=== PATIENT | male | born 1990 | race Caucasian/White ===

== ENCOUNTER 2019-12-09 23:51 | Inpatient (IN) ==
[2019-12-10 01:03] LABS: Appearance Urine Clear (Clear); Blood Urine Negative (Negative); Color Urine Dark Yellow; Glucose Urine UA Negative (Negative); Ketones Urine 2+ (Negative); Leukocyte Esterase Urine Negative (Negative); Nitrite Urine Negative (Negative); Protein Urine Negative (Negative); Specific Gravity Urine 1.037 (1.000-1.030); Urobilinogen Urine Negative (Negative)
[2019-12-10 01:12] LABS: Bilirubin Urine Negative (Negative); Ictotest Urine Negative (Negative)
[2019-12-10 01:28] LABS: Amphetamines+Metham, Urine Neg (Neg); Barbiturates, Urine Neg (Neg); Benzodiazepine, Urine Neg (Neg); Cocaine, Urine Neg (Neg); MDMA (Ecstacy), Urine Neg (Neg); Methadone, Urine Neg (Neg); Opiate, Urine Neg (Neg); Phencyclidine, Urine Neg (Neg)
[2019-12-10 01:29] LABS: Basophils # (auto) 0.01 K/uL (0-0.2); Basophils % (auto) 0.1 %; Eosinophils # (auto) 0.03 K/uL (0-0.5); Eosinophils % (auto) 0.3 %; Hemoglobin 15.4 g/dL (14.0-18.0); Immature Granulocytes # (auto) 0.01 K/uL (0.00-0.02); Immature Granulocytes % (auto) 0.1 %; Lymphocytes # (auto) 2.94 K/uL (1.2-3.4); Lymphocytes % (auto) 30.8 %; Mean Corpuscular Hgb Conc 35.8 g/dL (32-36); Mean Corpuscular Volume 89.4 fL (80-100); Mean Platelet Volume 10.5 fL (7.4-10.4); Monocytes # (auto) 0.77 K/uL (0.11-0.59); Monocytes % (auto) 8.1 %; Neutrophils # (auto) 5.77 K/uL (1.4-6.5); Neutrophils % (auto) 60.6 %; Platelet Count 186 K/uL (130-400); RDW Coefficient of Variation 12.3 % (11.5-14.5); RDW Standard Deviation 39.4 fL (36.4-46.3); Red Blood Count 4.81 M/uL (4.7-6.1); White Blood Count 9.53 K/uL (4.8-10.8)
[2019-12-10 01:50] LABS: Acetaminophen < 2 ug/ml (10-30); Salicylate < 1.7 mg/dl (2.8-20)
[2019-12-10 01:53] LABS: Albumin Level 4.2 gm/dl (3.4-5.0); BUN Creatinine Ratio 16.5 (10-20); Calcium 8.8 mg/dl (8.5-10.1); Creatinine Clr Calc Pharmacy 98.4 ml/min; Est GFR (African American) 96.1; Est GFR (Non-African American) 82.9; Potassium 3.6 mmol/L (3.5-5.1)
[2019-12-10 02:04] LABS: Albumin Globulin Ratio 1.3 (0.9-2); Bilirubin,Total 0.8 mg/dl (0.2-1); Globulin 3.3 gm/dl (2.5-4.0); Thyroid Stimulating Hormone 1.4 uIu/ml (0.300-4.500); Total Protein 7.5 gm/dl (6.4-8.2)
[2019-12-10] MEDS ORDERED: risperiDONE 1 MG TABLET PO PRN (06:34)
[2019-12-10] MEDS ORDERED: BISMUTH SUBSALICYLATE PER ML OMNICELL CHARGE PO PRN (06:36)
[2019-12-10] MEDS ORDERED: ACETAMINOPHEN 325 MG TAB PO PRN (06:36)
[2019-12-10] MEDS ORDERED: MAGNESIUM HYDROXIDE SUSP 30 ML UDC PO PRN (06:36)
[2019-12-10] MEDS ORDERED: ALUMINUM/MAGNESIUM SUSP 30 ML UDC PO PRN (06:36)
[2019-12-10] MEDS ORDERED: SODIUM CHLORIDE 0.65% NA SOLN 45 ML (OCEAN) PRN (06:36)
[2019-12-10] MEDS ORDERED: PATIENT'S ALLERGY INFO NEEDS ENTERED SCH (06:45)
--- NOTE | 2019-12-10 06:47 | Emergency Department Note ---
Entered by Junaid Saunders acting as a scribe for History of Present Illness General Chief complaint: Mental Health Evaluation Stated complaint: MENTAL BREAK DOWN Source: patient and friends History of Present Illness Onset (ago): day(s) (today) Location: head Pain Consistency: + constant Quality: + other (erratic behavior) Associated symptoms: + other (Negative for SI and HI.) The patient is a 29 year old male who presents to the emergency department with constant erratic behavior beginning today. The patient states that he has a history of depression. He notes that he has not been taking his antidepressants recently. He reports that he was on meth for his depression but is not anymore because it makes him depressed. The patient states that he has had some increased stress recently. Per friend, the patient has been erratic today. He notes that the patient was at a crisis center for a possible drug/alcohol related incident or for a possible mental breakdown. He reports that the patient has not acted like this in the past. The patient denies any SI and HI. He states that he had previously had suicidal ideations a year and a half ago, but he does not remember if he tried killing himself. He denies any recent illness, and he notes that he does not drink alcohol. He reports that he has a family history of depression. Home Medications Home Medications Medication Instructions Recorded Confirmed Type Unobtainable 12/10/19 12/10/19 History Allergies Allergy/AdvReac Type Severity Reaction Status Date / Time No Known Allergies Allergy Unverified 12/10/19 06:50 Past Med/Surg History Medical History (Updated 12/10/19 @ 06:37 by Junaid Saunders) Depression Family History (Updated 12/10/19 @ 01:05 by Junaid Saunders) Other Depression Social History (Updated 12/10/19 @ 01:26 by Junaid Saunders) Preferred Language: Latvian Feels Safe at Home: Yes Smoking Status: Never smoker Hx Alcohol Use: No Hx Substance Use: Yes substance use type: methamphetamine Review of Systems See HPI for pertinent positives & negatives. and A total of 10 systems reviewed and were otherwise negative Physical Exam Vital Signs Vital Signs - 24 hr 12/09/19 23:53 12/10/19 01:48 Temperature 36.4 C L Temperature Source Oral Pulse Rate 80 Pulse Rate [Apical] 80 Respiratory Rate 18 18 Respiratory Effort / Characteristics Non-Labored Respiratory Depth Normal Respiratory Pattern Regular Blood Pressure 144/73 H Blood Pressure [Left Arm] 135/77 Blood Pressure Mean 96 Blood Pressure Mean [Left Arm] 96 Pulse Oximetry 100 98 Oxygen Delivery Method Room Air Room Air Sepsis Recent Fever Within 48 Hours No Sepsis Action Taken by Nursing No Action Required GENERAL: alert, well appearing, well nourished, no distress, non-toxic EYE EXAM: normal conjunctiva, PERRL and EOM's grossly intact OROPHARYNX: no exudate, no erythema, lips, buccal mucosa, and tongue normal and mucous membranes are moist NECK: supple, no nuchal rigidity, no adenopathy, non-tender LUNGS: Clear to auscultation. Normal chest wall mechanics, no w/r/r. HEART: no murmurs, S1 normal and S2 normal ABDOMEN: abdomen soft, non-tender, normo-active bowel sounds, no masses, no rebound or guarding. BACK: Back is symmetrical on inspection and there is no deformity, no midline tenderness, no CVA tenderness. SKIN: no rashes and no bruising UPPER EXTREMITIES: upper extremities are grossly normal. FROM, nml pulses b/l. LOWER EXTREMITIES: No pitting edema. FROM, nml pulses b/l. NEURO EXAM: Normal sensorium, cranial nerves II-XII grossly intact, normal speech, no gross weakness of arms, no gross weakness of legs. Psych: Poor eye contact, inappropriate laughing, pressured speech, flight of ideas. Course Course 0009: The patient was evaluated in room A8. A complete history and physical exam was performed. 0340: The patient was seen by the psych case sealer Maricarmen. 0525: I signed the 302. 0600: The patient was accepted to [address] [place] [address]. He will be moved upstairs for further treatment. Medical Decision Making Differential Diagnosis Differential diagnoses considered include mood disorder, infection, hypoglycemia, electrolyte abnormalities, cardiac sources, intracerebral event, toxicologic, neurologic, as well as others. Medical Records Attestation: I reviewed the patient's medical records. Home Medications Current Medication List: was personally reviewed by me Laboratory Data Attestation: I reviewed the patient's lab results. Result diagrams: 12/10/19 01:18 12/10/19 01:18 Lab Results 12/10/19 12/10/19 12/10/19 Range/Units 00:08 00:08 01:18 WBC 9.53 (4.8-10.8) K/uL RBC 4.81 (4.7-6.1) M/uL Hgb 15.4 (14.0-18.0) g/dL Hct 43.0 (42-52) % MCV 89.4 (80-100) fL MCH 32.0 (25-34) pg MCHC 35.8 (32-36) g/dL RDW Std Deviation 39.4 (36.4-46.3) fL RDW Coeff of Magaly 12.3 (11.5-14.5) % Plt Count 186 (130-400) K/uL MPV 10.5 H (7.4-10.4) fL Immature Gran % (Auto) 0.1 % Neut % (Auto) 60.6 % Lymph % (Auto) 30.8 % [place] % (Auto) 8.1 % Eos % (Auto) 0.3 % Baso % (Auto) 0.1 % Immature Gran # (Auto) 0.01 (0.00-0.02) K/uL Neut # (Auto) 5.77 (1.4-6.5) K/uL Lymph # (Auto) 2.94 (1.2-3.4) K/uL [place] # (Auto) 0.77 H (0.11-0.59) K/uL Eos # (Auto) 0.03 (0-0.5) K/uL Baso # (Auto) 0.01 (0-0.2) K/uL Sodium (136-145) mmol/L Potassium (3.5-5.1) mmol/L Chloride (98-107) mmol/L Carbon Dioxide (21-32) mmol/L Anion Gap (3-11) BUN (7-18) mg/dl Creatinine (0.6-1.4) mg/dl Est Cr Clr Drug Dosing ml/min Est GFR ( Amer) Est GFR (Non-Af Amer) BUN/Creatinine Ratio (10-20) Glucose (70-99) mg/dl Calcium (8.5-10.1) mg/dl Total Bilirubin (0.2-1) mg/dl AST (15-37) U/L ALT (12-78) U/L Alkaline Phosphatase (45-117) U/L Total Protein (6.4-8.2) gm/dl Albumin (3.4-5.0) gm/dl Globulin (2.5-4.0) gm/dl Albumin/Globulin Ratio (0.9-2) TSH (0.300-4.500) uIu/ml Urine Color Dark Yellow Urine Appearance Clear (Clear) Urine pH 5.0 (4.5-7.5) Ur Specific [place] 1.037 H (1.000-1.030) Urine Protein Negative (Negative) Urine Glucose (UA) Negative (Negative) Urine Ketones 2+ H (Negative) Urine Blood Negative (Negative) Urine Nitrite Negative (Negative) Urine Bilirubin Negative (Negative) Urine Urobilinogen Negative (Negative) Ur Leukocyte Esterase Negative (Negative) Salicylates (2.8-20) mg/dl Urine Opiates Screen Neg (Neg) Ur Methadone, Qual Neg (Neg) Acetaminophen (10-30) ug/ml Urine Barbiturates Neg (Neg) Ur Phencyclidine (PCP) Neg (Neg) U Amphetamin/Meth Scrn Neg (Neg) MDMA (Ecstasy) Screen Neg (Neg) U Benzodiazepines Scrn Neg (Neg) Ur Cocaine Metabolite Neg (Neg) U Marijuana (THC) Screen Neg (Neg) Ethyl Alcohol mg/dL (0-3) mg/dl 12/10/19 12/10/19 12/10/19 Range/Units 01:18 01:18 01:18 WBC (4.8-10.8) K/uL RBC (4.7-6.1) M/uL Hgb (14.0-18.0) g/dL Hct (42-52) % MCV (80-100) fL MCH (25-34) pg MCHC (32-36) g/dL RDW Std Deviation (36.4-46.3) fL RDW Coeff of Magaly (11.5-14.5) % Plt Count (130-400) K/uL MPV (7.4-10.4) fL Immature Gran % (Auto) % Neut % (Auto) % Lymph % (Auto) % [place] % (Auto) % Eos % (Auto) % Baso % (Auto) % Immature Gran # (Auto) (0.00-0.02) K/uL Neut # (Auto) (1.4-6.5) K/uL Lymph # (Auto) (1.2-3.4) K/uL [place] # (Auto) (0.11-0.59) K/uL Eos # (Auto) (0-0.5) K/uL Baso # (Auto) (0-0.2) K/uL Sodium 138 (136-145) mmol/L Potassium 3.6 (3.5-5.1) mmol/L Chloride 107 (98-107) mmol/L Carbon Dioxide 29 (21-32) mmol/L Anion Gap 2.0 L (3-11) BUN 19 H (7-18) mg/dl Creatinine 1.18 (0.6-1.4) mg/dl Est Cr Clr Drug Dosing 98.4 ml/min Est GFR ( Amer) 96.1 Est GFR (Non-Af Amer) 82.9 BUN/Creatinine Ratio 16.5 (10-20) Glucose 95 (70-99) mg/dl Calcium 8.8 (8.5-10.1) mg/dl Total Bilirubin 0.8 (0.2-1) mg/dl AST 33 (15-37) U/L ALT 21 (12-78) U/L Alkaline Phosphatase 52 (45-117) U/L Total Protein 7.5 (6.4-8.2) gm/dl Albumin 4.2 (3.4-5.0) gm/dl Globulin 3.3 (2.5-4.0) gm/dl Albumin/Globulin Ratio 1.3 (0.9-2) TSH 1.400 (0.300-4.500) uIu/ml Urine Color Urine Appearance (Clear) Urine pH (4.5-7.5) Ur Specific [place] (1.000-1.030) Urine Protein (Negative) Urine Glucose (UA) (Negative) Urine Ketones (Negative) Urine Blood (Negative) Urine Nitrite (Negative) Urine Bilirubin (Negative) Urine Urobilinogen (Negative) Ur Leukocyte Esterase (Negative) Salicylates < 1.7 L (2.8-20) mg/dl Urine Opiates Screen (Neg) Ur Methadone, Qual (Neg) Acetaminophen < 2 L (10-30) ug/ml Urine Barbiturates (Neg) Ur Phencyclidine (PCP) (Neg) U Amphetamin/Meth Scrn (Neg) MDMA (Ecstasy) Screen (Neg) U Benzodiazepines Scrn (Neg) Ur Cocaine Metabolite (Neg) U Marijuana (THC) Screen (Neg) Ethyl Alcohol mg/dL < 3.0 (0-3) mg/dl Blood Pressure Blood Pressure Findings: Elevated blood pressure Blood Pressure Disposition: elevated BP felt to be situational MDM Narrative Patient presenting here with abnormal behavior, likely psychotic break. Patient having delusions, pressured speech, flight of ideas. Patient with poor insight, and appropriate emotional reaction, and poor judgment. Patient seen and evaluated by psychiatric case sealer who agreed with need for inpatient evaluation and treatment. Do not feel patient is competent to sign himself in at this time. 302 signed. Impression & Plan Psychosis, Delusions Discharge Plan Visit Data Chief Complaint: Mental Health Evaluation Stated Complaint: MENTAL BREAK DOWN ED Provider: Roslyn Bernal Discharge Problem: Psychosis, Delusions Patient Disposition: Transfer Behavioral Health Fac Discharge Instructions Interventions: ED Discharge Assessment Last Done: 12/10/19 06:21 Discharge Problem: Psychosis Qualifiers: Psychosis type: unspecified psychosis type Qualified Code(s): F29 - Unspecified psychosis not due to a substance or known physiological condition The shanteibe's documentation has been prepared under my direction and personally reviewed by me in its entirety. I confirm that the note above accurately reflects all work, treatment, procedures, and medical decision making performed by me.
--- NOTE | 2019-12-10 08:23 | History & Physical ---
Date of Service December 10, 2019 Impression / Recommendations Impression 29-year-old male who lives in [place], has a reported history of bipolar disorder type I, presented to the ER with a friend overnight due to manic and psychotic symptoms, and was admitted involuntarily. He was reportedly downtown, handing out thousands of dollars to strangers, has not been sleeping, and was grossly disorganized and responding to hallucinations in the ER. He was unable to provide biographical information, and after receiving both risperidone olanzapine, has finally fallen asleep. Little is known about his recent history, although it sounds as if he came to [place] to pursue a [place], but dropped out of school a few months ago. We will need to continue to expand the database and hopefully he will be more organized after he gets some sleep. (1) Bipolar 1 disorder: 12/10 -olanzapine 5 mg every 6 hours as needed. FLP and FG ordered for tomorrow. -Medically necessary private room due to severity of psychotic and manic symptoms. Patient is excused from groups due to severity of psychotic symptoms/erratic behavior. -Expand database with information from mother, previous treatment records if we can identify them, and any local support/friends. On a 302 involuntary commitment, continue to gather information toward the need for ongoing involuntary commitment. Risk Factors Assessment Male: Yes : Yes Mental Health Diagnoses: Yes Psychiatric History Identifying Data NICOLA PULLIAM is a 29-year-old M who currently lives in [place], has an unknown psychiatric history, and was admitted on 12/10/19 05:58 on a 302 involuntary commitment for psychosis. Chief Complaint "Are you Lewis? Yes Lewis no Lewis". History of Present Illness Patient presented to the ER in the corporate securities research analyst hours with a friend, who had contacted crisis due to patient's erratic and bizarre behavior. Reportedly he was walking around downtown, handing out thousands of dollars to people and area businesses. He had recently been kicked out of graduate school in [place]. In the ER, he appeared manic, with pressured speech, flight of ideas, inappropriate laughter, and inability to stay on topic or answer questions appropriately. He appeared to be responding to internal stimuli, and he said he came into the ER for "bad gas." His friends reported he has known the patient for 5 months, did not know of any drug use, and had never seen him behave this way before. He said that he received a masters degree in [place], and came to [employer] [employer] to get a PhD, but was kicked out for "being racist against women." He said he was from [place], and was handing out money because he had it, and felt it was right to give it to others. He said he hates women because "they all suck," but told the ER psych skilled nursing case manager he liked her because she had nice eyebrows. He was laughing loudly throughout the assessment. He was unable to provide answers to most questions, answering with unrelated or contradictory information. At one point he reported using meth and heroin, but later denied using drugs. He said he had been diagnosed with bipolar disorder, depression, and schizophrenia in the past, then said he had been diagnosed with Alzheimer's, dementia, and Parkinson's, but then said he was lying. He said he would is prescribed Lamictal at some point in the past, but took himself off of it, but cannot recall when this happened. He was able to provide a phone number for his mother. He was admitted on a 302 involuntary commitment. On arrival to the unit, he is floridly psychotic and labile, became hysterical at one point, yelling and asking where his father was. He was tearful and distraught, but staff were able to de-escalate him. He was walking around the unit, talking to unseen others, taking down art off the bocanegra, and attempting to leave through the unit locked doors. He was unable to explain how he came to be in the hospital, and kept asking me if I was "Lewis." He was very resistant to staff suggestions he tried to get some sleep, and received 1 mg of risperidone, and later 10 mg of olanzapine. He eventually did lie down and is currently sleeping. His mother was contacted and stated that he was diagnosed with bipolar disorder, and had been on lamotrigine in the past. He was hospitalized in [place], and is close with his siblings who live in [place]. He lost his insurance through [employer] when he dropped out of the PhD program in August or September. Admission labs notable for BUN of 19, anion gap of 2.0, UA with 2+ ketones, UDS negative. Past Psychiatric History Current Psychiatric Diagnosis: Bipolar disorder, current episode manic with psychosis Outpatient Services: None Previous Psych Admissions: [place] Past Medication Trials: Lamotrigine Others unknown Allergies Allergy/AdvReac Type Severity Reaction Status Date / Time No Known Allergies Allergy Unverified 12/10/19 06:50 Home Medications Home Medications Medication Instructions Recorded Confirmed Type Unobtainable 12/10/19 12/10/19 History Family History Family Mental Health History Comment: uncles- depression Alcohol History Hx of Alcohol Use Over the Past 12 Months: Yes (social) Smoking Use Have You Smoked or Used Tobacco Products in the Last 30 Days: Yes tobacco type: cigarettes Smoking Status: Current some day smoker Substance History Hx of Prescription Med Misuse Over the Past 12 Months: No Hx of Over the Counter Med Misuse Over the Past 12 Months: No Hx of Inhalent Misuse Over the Past 12 Months: No Hx of Organic Substance Use Over the Past 12 Months: No Hx of Illegal Substances/Street Drug Use Over Past 12 Months: Yes (possible meth use, cannot confirm) Problems as a Result of Past Substance Use: None Identified Personal History Living Arrangements: Apartment Living Arrangements Comments: In [place] Childhood: From [place] Beliefs That Will Affect Care: None Patient History Medical History (Updated 12/10/19 @ 13:29 by Claudia Dior MD) Bipolar 1 disorder Depression Family History (Updated 12/10/19 @ 01:05 by Junaid Saunders) Other Depression Social History (Updated 12/10/19 @ 01:26 by Junaid Saunders) Preferred Language: Guamanian Communication Ability: Effective Anesthesiologist And Critical Care Required: No Beliefs That Will Affect Care: None Feels Safe at Home: Yes Smoking Status: Current some day smoker Tobacco Type: cigarettes ; Hx Alcohol Use: No Hx Substance Use: Yes substance use type: methamphetamine Review of Systems Review of Systems: Unobtainable due to mental health condition Physical Exam Psychiatric: Orientation: alert and cooperative (But a very limited historian) Dressed in pajama pants and multiple shirts, disheveled Eye Contact: good eye contact (Intense, staring) Motor Behavior: + psychomotor agitation (Pacing, trying to exit the locked doors) Hyperverbal, pressured Expansive, euphoric affect, laughing inappropriately, intrusive behavior Thought Process: + incoherent thought process Severely disorganized Actively responding to internal stimuli, conversing with unseen others Cognition: + recent memory not intact, + remote memory not intact and + attention not intact Insight: + severely impaired insight Judgement: + severely impaired judgement Vital Signs (Past 24 Hours): Last Vital Signs Temp 36.3 C L 12/10/19 07:03 Pulse 73 12/10/19 07:03 Resp 18 12/10/19 07:03 BP 130/84 12/10/19 07:03 Pulse Ox 98 12/10/19 01:48 Exam Statement: A physical exam was performed in the ER prior to admission to the unit by Dr. Roslyn martin. I accept that physical as correct/medical clearance for the inpatient physical exam. Results & Data ([facility]) Laboratory Results Laboratory Results - last 24 hr 12/10/19 12/10/19 12/10/19 00:08 00:08 01:18 WBC 9.53 RBC 4.81 Hgb 15.4 Hct 43.0 MCV 89.4 MCH 32.0 MCHC 35.8 RDW Std Deviation 39.4 RDW Coeff of Magaly 12.3 Plt Count 186 MPV 10.5 H Immature Gran % (Auto) 0.1 Neut % (Auto) 60.6 Lymph % (Auto) 30.8 [place] % (Auto) 8.1 Eos % (Auto) 0.3 Baso % (Auto) 0.1 Immature Gran # (Auto) 0.01 Neut # (Auto) 5.77 Lymph # (Auto) 2.94 [place] # (Auto) 0.77 H Eos # (Auto) 0.03 Baso # (Auto) 0.01 Sodium Potassium Chloride Carbon Dioxide Anion Gap BUN Creatinine Est Cr Clr Drug Dosing Est GFR ( Amer) Est GFR (Non-Af Amer) BUN/Creatinine Ratio Glucose Calcium Total Bilirubin AST ALT Alkaline Phosphatase Total Protein Albumin Globulin Albumin/Globulin Ratio TSH Urine Color Dark Yellow Urine Appearance Clear Urine pH 5.0 Ur Specific [place] 1.037 H Urine Protein Negative Urine Glucose (UA) Negative Urine Ketones 2+ H Urine Blood Negative Urine Nitrite Negative Urine Bilirubin Negative Urine Urobilinogen Negative Ur Leukocyte Esterase Negative Salicylates Urine Opiates Screen Neg Ur Methadone, Qual Neg Acetaminophen Urine Barbiturates Neg Ur Phencyclidine (PCP) Neg U Amphetamin/Meth Scrn Neg MDMA (Ecstasy) Screen Neg U Benzodiazepines Scrn Neg Ur Cocaine Metabolite Neg U Marijuana (THC) Screen Neg Ethyl Alcohol mg/dL 12/10/19 12/10/19 12/10/19 01:18 01:18 01:18 WBC RBC Hgb Hct MCV MCH MCHC RDW Std Deviation RDW Coeff of Magaly Plt Count MPV Immature Gran % (Auto) Neut % (Auto) Lymph % (Auto) [place] % (Auto) Eos % (Auto) Baso % (Auto) Immature Gran # (Auto) Neut # (Auto) Lymph # (Auto) [place] # (Auto) Eos # (Auto) Baso # (Auto) Sodium 138 Potassium 3.6 Chloride 107 Carbon Dioxide 29 Anion Gap 2.0 L BUN 19 H Creatinine 1.18 Est Cr Clr Drug Dosing 98.4 Est GFR ( Amer) 96.1 Est GFR (Non-Af Amer) 82.9 BUN/Creatinine Ratio 16.5 Glucose 95 Calcium 8.8 Total Bilirubin 0.8 AST 33 ALT 21 Alkaline Phosphatase 52 Total Protein 7.5 Albumin 4.2 Globulin 3.3 Albumin/Globulin Ratio 1.3 TSH 1.400 Urine Color Urine Appearance Urine pH Ur Specific [place] Urine Protein Urine Glucose (UA) Urine Ketones Urine Blood Urine Nitrite Urine Bilirubin Urine Urobilinogen Ur Leukocyte Esterase Salicylates < 1.7 L Urine Opiates Screen Ur Methadone, Qual Acetaminophen < 2 L Urine Barbiturates Ur Phencyclidine (PCP) U Amphetamin/Meth Scrn MDMA (Ecstasy) Screen U Benzodiazepines Scrn Ur Cocaine Metabolite U Marijuana (THC) Screen Ethyl Alcohol mg/dL < 3.0 Current Inpatient Medications Current Inpatient Medications: Current Inpatient Medications Acetaminophen (Tylenol) 650 mg PO Q4H PRN PRN Reason: Headache or Minor Fever Stop: 01/09/20 06:35 Al Hydrox/Mg Hydrox/Simethicone (Maalox) 30 ml PO Q4H PRN PRN Reason: GI Upset Stop: 01/09/20 06:35 Bismuth Subsalicylate (Kaopectate) 15 ml PO PRN PRN PRN Reason: Loose Stool Stop: 01/09/20 06:35 Hydroxyzine HCl (Vistaril) 50 mg PO HSZ PRN PRN Reason: Insomnia Stop: 01/09/20 06:35 Hydroxyzine HCl (Vistaril) 25 mg PO Q4H PRN PRN Reason: Anxiety Stop: 01/09/20 06:35 Magnesium Hydroxide (Milk Of Magnesia) 30 ml PO DAILY PRN PRN Reason: Constipation Stop: 01/09/20 06:35 Risperidone (Risperdal) 1 mg PO Q6 PRN PRN Reason: psychosis Stop: 01/09/20 06:33 Last Admin: 12/10/19 06:51 Dose: 1 mg Documented by: Sodium Chloride ([place] Nasal) 1 - 2 sprays NA PRN PRN PRN Reason: Nasal Dryness/Congestion Stop: 01/09/20 06:35
[2019-12-10] MEDS ORDERED: OLANZapine 5 MG TABLET PO PRN (09:36)
[2019-12-10] MEDS ORDERED: OLANZapine 10 MG TAB PO ONE (10:00)
--- NOTE | 2019-12-11 08:12 | Psychiatric Progress Note ---
Date of Service December 11, 2019 Impression / Recommendations Impression 29-year-old male who lives in [place], has a reported history of bipolar disorder type I, presented to the ER with a friend due to manic and psychotic symptoms, and was admitted involuntarily. He was reportedly downtown, handing out thousands of dollars to strangers, had not been sleeping, went off his mood stabilizing medication, and was grossly disorganized and responding to hallucinations in the ER. Yesterday he was floridly manic and psychotic and unable to provide biographical information, and ultimately fell asleep after receiving both risperidone and olanzapine. Little is known about his recent history, although it sounds as if he came to [employer] to pursue a PhD, but dropped out of school a few months ago. His mother has provided collateral that he was previously diagnosed with bipolar and prescribed lamotrigine, and has been hospitalized in [place] in the past. He remains psychotic and manic, unable to provide for his own basic needs, and inpatient treatment is medically necessary. (1) Bipolar 1 disorder: 12/10 -olanzapine 5 mg every 6 hours as needed. FLP and FG ordered for tomorrow. -Medically necessary private room due to severity of psychotic and manic symptoms. Patient is excused from groups due to severity of psychotic symptoms/erratic behavior. -Expand database with information from mother, previous treatment records if we can identify them, and any local support/friends. On a 302 involuntary commitment, continue to gather information toward the need for ongoing involuntary commitment. 12/11 -schedule olanzapine 5 mg every morning and 10 mg at bedtime, and continue 5 mg as needed dose. -Patient was not fasting this morning, so fasting labs rescheduled for tomorrow. -Continue private room due to severity of psychotic and manic symptoms. -Excused from groups as unable to participate appropriately, and postpone family meeting until under better symptomatic control. Risk Factors Assessment Male: Yes : Yes Mental Health Diagnoses: Yes Interval History Identifying Information NICOLA PULLIAM is a 29-year-old M who currently lives in [place], has a history of bipolar disorder, and was admitted on 12/10/19 05:58 on a 302 involuntary commitment for shanice and psychosis. Chief Complaint "Oh I love that benedicto! I just got admitted because the women in [facility] think I'm crazy and racist and sexist". Review of Systems Sleep Information Total Hours of Sleep: 1.5 Sleep Comments: pt spent most of the shift in the day room. he refused PRN medications. Meal Information Percent Meal Consumed - Breakfast: 0 Percent Meal Consumed - Lunch: 0 Percent Meal Consumed - Dinner: 0 Nutrition Comment: pt. resting. Meal dated, labeled and refrigerated Subjective Subjective Patient was seen & assessed and interval progress reviewed with nursing and social work. Staff report he slept all day, but was up all night (and eating, so fasting labs unable to be drawn this morning). He continues to be hyperactive, hyperverbal, pressured, paranoid, intrusive, with erratic behavior, taking artwork off the bocanegra, and requiring redirection. His friend who brought him to the ER visited last night, and is returning today, along with his principal java software engineer. On my assessment, the patient is a difficult historian, laughing loudly, frequently interrupting, and easily irritated. He initially states he does not remember meeting me yesterday, then says that he does and that he is "complying with everything the doctor told me, we're working well together." He says he was brought to the hospital because of "the women in this town, the important ones," and states he is very angry about being here, does not need to be here, and denies that anyone was concerned about his behavior. He says that his friend thinks he is "fine," and repeatedly blames his hospitalization on unknown "women." He is evasive regarding his psychiatric history, initially stating "it's in the past" when asked about it, and later states "I think one doctor said I was may be depressed." He denies that he was ever diagnosed with bipolar disorder, and initially denies being prescribed lamotrigine, but later states he was taking it at some point, but cannot give further information. He says he has a doctor in [place] "but I have not seen him, we email." He then says he was hospitalized because "I have a little bit of history, same thing happened in [place], it took them a week to figure out I was okay, and then they shut that hospital down." He repeatedly returns to the topic of his anger about being hospitalized, stating "this whole thing is ridiculous, I asked a dozen times to see my doctor, they ignored me." When asked to his doctor's, he says "I don't know, just a doctor!" He becomes increasingly loud and demanding, stating "I told everyone I was all right," I already said I do not need to be here!" He then demands to record the conversation, stating " I don't trust you!" Physical Exam Psychiatric Orientation: alert; + uncooperative Well-nourished well-developed white male appearing his stated age. Dressed bizarrely, in multiple layers. Adequate hygiene. Eye Contact: good eye contact (Staring, intense) Motor Behavior: steady gait and station and + psychomotor agitation Excessive, rapid, pressured speech, laughing loudly and inappropriately, yelling at times. Affect: + labile affect Switches rapidly from euphoric to angry Mood: + angry mood "I'm mad!" Thought Process: + flight of ideas and + looseness of associations Thought Content: + preoccupation (Anger about being in the hospital) and + paranoid Uncooperative with interview, refused to continue Hallucinations: + auditory hallucinations (Denies auditory hallucinations, but is distracted, laughing at unseen stimuli, have to repeat questions multiple times and appears to be responding to hallucinations) Cognition: + recent memory not intact and + attention not intact Insight: + severely impaired insight Judgement: + severely impaired judgement Vital Signs (Past 24 Hours) Last Vital Signs Temp 36.3 C L 12/10/19 07:03 Pulse 73 12/10/19 07:03 Resp 18 12/10/19 07:03 BP 130/84 12/10/19 07:03 Pulse Ox 98 12/10/19 01:48 Results & Data ([facility]) Current Inpatient Medications Current Inpatient Medications: Current Inpatient Medications Acetaminophen (Tylenol) 650 mg PO Q4H PRN PRN Reason: Headache or Minor Fever Stop: 01/09/20 06:35 Al Hydrox/Mg Hydrox/Simethicone (Maalox) 30 ml PO Q4H PRN PRN Reason: GI Upset Stop: 01/09/20 06:35 Bismuth Subsalicylate (Kaopectate) 15 ml PO PRN PRN PRN Reason: Loose Stool Stop: 01/09/20 06:35 Hydroxyzine HCl (Vistaril) 50 mg PO HSZ PRN PRN Reason: Insomnia Stop: 01/09/20 06:35 Hydroxyzine HCl (Vistaril) 25 mg PO Q4H PRN PRN Reason: Anxiety Stop: 01/09/20 06:35 Magnesium Hydroxide (Milk Of Magnesia) 30 ml PO DAILY PRN PRN Reason: Constipation Stop: 01/09/20 06:35 Olanzapine (Zyprexa) 5 mg PO Q6H PRN PRN Reason: psychosis Stop: 01/09/20 09:44 Sodium Chloride ([place] Nasal) 1 - 2 sprays NA PRN PRN PRN Reason: Nasal Dryness/Congestion Stop: 01/09/20 06:35 Mental Health & Subst Abuse Tx Therapist Name of Therapist: unknown Hospital Administrative Assistant Name of Hospital Administrative Assistant: unknown Post Discharge Appointments Primary Care Physician Name Of Family Doctor: unknown
[2019-12-11] MEDS ORDERED: OLANZapine 5 MG TABLET PO SCH (09:00)
[2019-12-11] MEDS ORDERED: OLANZapine 10 MG TAB PO SCH (22:00)
--- NOTE | 2019-12-12 08:24 | Psychiatric Progress Note ---
Date of Service December 12, 2019 Impression / Recommendations Impression The patient is a 29-year-old male who lives alone in [place], recently dropped out of graduate school, and has a reported history of bipolar disorder type I but not currently in treatment or taking medication. He was admitted involuntarily after he presented to the ER with a friend due to manic and psychotic symptoms, as he was downtown, handing out thousands of dollars to strangers, had not been sleeping, went off his mood stabilizing medication, and was grossly disorganized and responding to hallucinations in the ER. He is floridly manic and psychotic and was initially unable to provide biographical information, and has been started on olanzapine. Little is known about his recent history, although it sounds as if he came to [facility] to pursue a PhD, but dropped out of school sometime in the past few months. His parents live in [place], and mother has provided collateral that he was previously diagnosed with bipolar disorder and prescribed lamotrigine, and was hospitalized in [place] in the past. He remains psychotic and manic, and will require ongoing involuntary commitment. He is at risk to himself as he is unable to provide for his own basic needs (as evidenced by his of outpatient treatment for bipolar disorder despite severe symptoms and history of hospitalization for the same), and places others at risk due to his erratic behavior, hypersexuality, and lack of appropriate boundaries as evidenced by repeatedly touching and harassing female staff in the hospital, harassing female peers, and inability to control his behavior even here on the inpatient unit with frequent redirection and reality orientation. If he were to behave in this manner outside of the hospital, he would not only risk harming others, but also would place himself at risk of harm in retaliation for his behavior. Inpatient treatment remains medically necessary in the least restrictive treatment option. (1) Bipolar 1 disorder: 12/10 -olanzapine 5 mg every 6 hours as needed. FLP and FG ordered for tomorrow. -Medically necessary private room due to severity of psychotic and manic symptoms. Patient is excused from groups due to severity of psychotic symptoms/erratic behavior. -Expand database with information from mother, previous treatment records if we can identify them, and any local support/friends. On a 302 involuntary commitment, continue to gather information toward the need for ongoing involuntary commitment. 12/11 -schedule olanzapine 5 mg every morning and 10 mg at bedtime, and continue 5 mg as needed dose. -Patient was not fasting this morning, so fasting labs rescheduled for tomorrow. -Continue private room due to severity of psychotic and manic symptoms. -Excused from groups as unable to participate appropriately, and postpone family meeting until under better symptomatic control. 12/12 -patient is somnolent this morning, so held a.m. dose of olanzapine. FLP and fasting glucose checked today for monitoring on an atypical antipsychotic, all values are within normal limits. -Continue private room and excuse patient from groups due to hypersexual and inappropriate behavior. -File for 303 involuntary commitment hearing to be held tomorrow. -Assist patient to apply for medical assistance, and refer for outpatient case management services. Risk Factors Assessment Male: Yes : Yes Health Problems: No Mental Health Diagnoses: Yes Previous Psychiatric Hospitalization: Yes Protective Factors Assessment Taoism Beliefs: Yes : No Responsible for Young Children: No Employed: No Stable Relationships: No (Patient reports he has not spoken to his brother in months and is distressed about that, and has few friends/supports here.) Supportive Family: Yes Good Rapport with Provider: No (No outpatient care) Interval History Identifying Information NICOLA PULLIAM is a 29-year-old M who currently lives in [place], has a history of bipolar disorder, and was admitted on 12/10/19 05:58 on a 302 involun tary commitment for shanice and psychosis. Chief Complaint Patient laughing inappropriately Review of Systems Sleep Information Total Hours of Sleep: 8.25 Meal Information Percent Meal Consumed - Breakfast: 100 Percent Meal Consumed - Lunch: 90 Percent Meal Consumed - Dinner: 95 Nutrition Comment: pt. resting. Meal dated, labeled and refrigerated Subjective Subjective Patient was seen & assessed and interval progress reviewed with treatment team. Staff report he met with the psychiatric social worker yesterday to complete his psychosocial assessment, was easily distracted, and stated he was leaving. He said that his parents are supporting him financially, and he is self-employed as a newspaper writer. He said that he is estranged from his brother Berto for the past 6 months, which is a stressor for him. He currently lives alone in an apartment, and plans to stay in the area until his lease runs out in February. He said his only local supports are his friend Britton and his mother. He said he does not have health insurance, and agreed to apply for medical assistance and referral to the [facility] for case management. He was agreeable to a family meeting with his parents and brother, and continued to deny that he ever been diagnosed with bipolar disorder. Throughout the day, he continued to demonstrate pressured speech and disorganized behavior, required frequent redirection, was unable to stay on task, and had poor boundaries with staff and peers. He was able to tolerate some groups, but had to be excused after becoming upset and agitated. A member of his cheondoism visited and brought him cupcakes, and staff noted that she left in tears, and that he was also crying and accepted an as needed dose of olanzapine 5 mg (for a total of 15 mg yesterday). He then placed his hands on the nurses waste and attempted to pull her toward him, and had to be redirected. He continued to attempt to touch her, play with her hair, repeatedly asked if she would dance with him" when the kissing part would be." Multiple female peers have complained that he is making inappropriate comments, is intrusive, and he has been going into other patient's rooms and interfering with their things. He has been observed to be eating well, and slept well overnight. This morning, he initially refused his fasting lab work, but with staff encouragement and support, agreed to allow the blood draw. He then returned to bed and went back to sleep, where he remains at the time of the assessment. Attempted to see him twice this morning, initially he was unable to be aroused and was sleeping soundly. On the second attempt, he opened his eyes, was laughing without stimulus and spreading his arms out, stated he was tired, and then appeared to fall back asleep. He would open eyes briefly and respond to questions with a couple of words before closing eyes and appearing to fall asleep again. He den ied concerns other than sleepiness. Advised him that, as discussed yesterday, I filed for a 303 involuntary commitment and the hearing will be scheduled in the next couple of days. Advised that staff would notify him when we have more detailed information. Unclear if patient understands this. Physical Exam Psychiatric Somnolent, poorly able to engage in the assessment. Dressed in a button-down dress shirt and track pants, lying in bed on his side sleeping in no acute distress. Eye Contact: + poor eye contact Opens eyes briefly. Motor Behavior: no abnormal motor movements Minimal speech, slowed. Smiling and laughing inappropriately when awoken from sleep. Thought Process: + incoherent thought process Cognition: + recent memory not intact and + attention not intact Insight: + severely impaired insight Judgement: + severely impaired judgement Vital Signs (Past 24 Hours) Last Vital Signs Temp 36.3 C L 12/10/19 07:03 Pulse 61 12/12/19 07:46 Resp 16 12/11/19 10:39 BP 124/78 12/12/19 07:46 Pulse Ox 98 12/10/19 01:48 Results & Data ([facility]) Laboratory Results Laboratory Results - last 24 hr 12/12/19 07:35 Fasting Glucose Pending Triglycerides Pending Cholesterol Pending LDL Cholesterol, Calc Pending VLDL Cholesterol, Calc Pending HDL Cholesterol Pending Cholesterol/HDL Ratio Pending Current Inpatient Medications Current Inpatient Medications: Current Inpatient Medications Acetaminophen (Tylenol) 650 mg PO Q4H PRN PRN Reason: Headache or Minor Fever Stop: 01/09/20 06:35 Al Hydrox/Mg Hydrox/Simethicone (Maalox) 30 ml PO Q4H PRN PRN Reason: GI Upset Stop: 01/09/20 06:35 Bismuth Subsalicylate (Kaopectate) 15 ml PO PRN PRN PRN Reason: Loose Stool Stop: 01/09/20 06:35 Hydroxyzine HCl (Vistaril) 50 mg PO HSZ PRN PRN Reason: Insomnia Stop: 01/09/20 06:35 Hydroxyzine HCl (Vistaril) 25 mg PO Q4H PRN PRN Reason: Anxiety Stop: 01/09/20 06:35 Magnesium Hydroxide (Milk Of Magnesia) 30 ml PO DAILY PRN PRN Reason: Constipation Stop: 01/09/20 06:35 Olanzapine (Zyprexa) 5 mg PO Q6H PRN PRN Reason: psychosis Stop: 01/09/20 09:44 Olanzapine (Zyprexa) 5 mg PO QAM JUSTIN Stop: 01/10/20 08:59 Last Admin: 12/11/19 10:12 Dose: 5 mg Documented by: Olanzapine (Zyprexa) 10 mg PO HS JUSTIN Stop: 01/10/20 21:59 Last Admin: 12/11/19 21:02 Dose: 10 mg Documented by: Sodium Chloride ([place] Nasal) 1 - 2 sprays NA PRN PRN PRN Reason: Nasal Dryness/Congestion Stop: 01/09/20 06:35 Mental Health & Subst Abuse Tx Therapist Name of Therapist: unknown Director Career Services Name of Director Career Services: unknown Post Discharge Appointments Primary Care Physician Name Of Family Doctor: unknown
[2019-12-12 08:27] LABS: Glucose Fasting 94 mg/dl (70-99)
[2019-12-12 08:34] LABS: Chol HDL Ratio 3; Cholesterol 157 mg/dl (0-200); HDL Cholesterol 57 mg/dl; LDL Cholesterol Calculated 86 mg/dl; Triglycerides 70 mg/dl (0-150); VLDL Cholesterol 14 mg/dl
[2019-12-12] MEDS ORDERED: OLANZapine 10 MG TAB PO SCH (09:00)
[2019-12-12] MEDS: OLANZapine 10 MG TAB PO SCH (21:17)
--- NOTE | 2019-12-13 09:18 | Psychiatric Progress Note ---
Date of Service December 13, 2019 Impression / Recommendations Impression The patient is a 29-year-old male who lives alone in [place], recently dropped out of graduate school, and has a reported history of bipolar disorder type I but not currently in treatment or taking medication. He was admitted involuntarily after he presented to the ER with a friend due to manic and psychotic symptoms, as he was downtown, handing out thousands of dollars to strangers, had not been sleeping, went off his mood stabilizing medication, and was grossly disorganized and responding to hallucinations in the ER. On admission he was floridly manic and psychotic and unable to provide biographical information. He responded well to PRN olanzapine, so that has been scheduled. Little is known about his recent history, although it sounds as if he came to [facility] to pursue a PhD, but dropped out of school sometime in the past few months. His parents live in [place], and mother has provided collateral that he was previously diagnosed with bipolar disorder and prescribed lamotrigine, and was hospitalized in [place] in the past. He is refused to sign releases for past treatment records. Although sleep and psychosis are somewhat improved, he remains manic with poor behavioral control, and is now on a 303 involuntary commitment. He is at risk to himself as he is unable to provide for his own basic needs (as evidenced by his of outpatient treatment for bipolar disorder despite severe symptoms and history of hospitalization for mood disorder), and places others at risk due to his erratic behavior, hypersexuality, and lack of appropriate boundaries as evidenced by repeatedly touching and harassing female staff in the hospital, harassing female peers, and inability to control his behavior even here on the inpatient unit with frequent redirection and reality orientation. If he were to behave in this manner outside of the hospital, he would not only risk harming others, but also would place himself at risk of harm in retaliation for his behavior. Inpatient treatment remains medically necessary and is the least restrictive treatment option. (1) Bipolar 1 disorder: 12/10 -olanzapine 5 mg every 6 hours as needed. FLP and FG ordered for tish kim. -Medically necessary private room due to severity of psychotic and manic symptoms. Patient is excused from groups due to severity of psychotic symptoms/erratic behavior. -Expand database with information from mother, previous treatment records if we can identify them, and any local support/friends. On a 302 involuntary commitment, continue to gather information toward the need for ongoing involuntary commitment. 12/11 -schedule olanzapine 5 mg every morning and 10 mg at bedtime, and continue 5 mg as needed dose. -Patient was not fasting this morning, so fasting labs rescheduled for tomorrow. -Continue private room due to severity of psychotic and manic symptoms. -Excused from groups as unable to participate appropriately, and postpone family meeting until under better symptomatic control. 12/12 -patient is somnolent this morning, so held a.m. dose of olanzapine. FLP and fasting glucose checked today for monitoring on an atypical antipsychotic, all values are within normal limits. -Continue private room and excuse patient from groups due to hypersexual and inappropriate behavior. -File for 303 involuntary commitment hearing to be held tomorrow. -Assist patient to apply for medical assistance, and refer for outpatient case management services. 12/13 -303 involuntary commitment granted. -Continue olanzapine 10 mg at bedtime and 5 mg as needed dose. -Continue private room, patient may attend groups as tolerated/if able to remain in behavioral control. Patient was advised of his responsibilities as far as appropriate behavior, not touching or harassing others on the unit, and expressed understanding. -Recommend family meeting with parents who are in [place], and referral for outpatient treatment as he states he plans to remain in the area until his lease expires. He does not have insurance, so will refer to the base service unit for assistance with outpatient treatment. Risk Factors Assessment Male: Yes : Yes Health Problems: No Mental Health Diagnoses: Yes Previous Psychiatric Hospitalization: Yes Protective Factors Assessment Orthodoxy Beliefs: Yes : No Responsible for Young Children: No Employed: No Stable Relationships: No (Patient reports he has not spoken to his brother in months and is distressed about that, and has few friends/supports here.) Supportive Family: Yes Good Rapport with Provider: No (No outpatient care) Interval History Identifying Information NICOLA PULLIAM is a 29-year-old M who currently lives in [place], has a history of bipolar disorder, and was admitted on 12/10/19 05:58 on a 302 involuntary commitment for shanice and psychosis. He is on a 303 involuntary commitment as of 12/13/2019. Chief Complaint " I'm fine, I keep telling you I'm fine!" Review of Systems Sleep Information Total Hours of Sleep: 7 Sleep Comments: pt spent most of the shift in the day room. he refused PRN medications. Meal Information Percent Meal Consumed - Breakfast: 0 Percent Meal Consumed - Lunch: 0 Percent Meal Consumed - Dinner: 100 Nutrition Comment: pt. sleeping Subjective Subjective Patient was seen & assessed and interval progress reviewed with nursing and social work. Staff report he is refusing recommendations to make referrals for outpatient treatment, to sign releases for anyone other than his mother, and continues to state he does not need mental health treatment. His mother has been contacted multiple times, and spoke with the social work specialist yesterday, was advised of concerns regarding the patient's current condition and lack of outpatient treatment and supports here. She stated that he is applying to different PhD programs in other [facility] after dropping out of [facility]. She stated that he was hospitalized in [place] for depression and suicidal ideation, and requested that staff call the patient's father for any future information as she was busy and had to work. It was explained to her that we did not have the patient's permission to speak with his father. She later called the social work specialist back, stating that she received a call from police stating a missing persons report was filed on her son. Apparently he was at a dinner libertarian and left his wallet and jacket there. Yesterday, he was somnolent much of the morning, and his morning dose of olanzapine was held. He continues to be intrusive with poor boundaries, was flirting with female patients, and expressing anger at being in the hospital and prescribed medications. He initially refused his olanzapine last night, but later took it. He was excused from groups yesterday due to poor behavioral control. On my assessment this morning, he says he is here because "my friend brought me in due to my mental health background, I was just giving away money, not that much, like $1500." He says he was giving money to businesses downtown, "places I made friends, places that support art," giving $3-$400 to several businesses and some money to friends as well. He does not believe that he has a mental illness or needs treatment, and remains evasive regarding his mental health history. He again asked what his diagnosis was, and again reviewed current diagnosis and reports of a history of bipolar disorder and past treatment with mood stabilizing medication. When asked what his plans are if he were discharged from the hospital, he says "I'd like to start making them, I'm done with [facility]..." He is waiting to hear back from graduate programs at other schools, stating that this [place] [employer] was not a good fit for him. He also says "I just need to go home and clean my room." He admits that he was "flirting" with female staff here, but does not see his behavior as problematic. He displays poor memory for earlier assessments, and again reviewed his course of treatment here, that I have met with him daily since admission, and some of his behaviors on admission, including taking art down off the [place] and trying to leave the unit through the locked doors. He says he wants to know "why is this hospital rigged, full of confusion and things that don't make sense, why is it designed this way? To other patients ask this?" He continues to repeat these questions and cannot be redirected to focus on his own treatment. He then says he needs to take notes, said he would write down my response to his question of when he could be discharged, and wanted me to sign it. He became increasingly irritable and oppositional, did not answer when asked if he had any further questions about his treatment, and the interview was terminated. He attended his 303 hearing, and although he talked under his breath and took notes to himself throughout, he did not testify. After his hearing, he met with the social work specialist and stated he plans to stay in the area after discharge as he has a lease, signed a release for the base service unit, stated he was willing to apply for medical assistance, and apologized for his behavior yesterday. Physical Exam Psychiatric Orientation: alert; + uncooperative Apperance: appropriately dressed, appropriately groomed and appeared stated age Eye Contact: good eye contact Motor Behavior: steady gait and station and + psychomotor agitation Restlessness Hyperverbal, pressured, frequently interrupting, speech punctuated by hemanth ppropriate laughter, sarcastic and condescending at times. Expansive, labile "I'm fine." Thought Process: + looseness of associations Thought Content: + paranoid Suicidal Thoughts: denies suicidal thoughts Homicidal Thoughts: denies homicidal thoughts Hallucinations: no auditory hallucinations Cognition: language grossly intact; + recent memory not intact and + attention not intact Insight: + poor insight Judgement: + poor judgement Vital Signs (Past 24 Hours) Last Vital Signs Temp 36.4 C L 12/13/19 06:49 Pulse 65 12/13/19 06:50 Resp 16 12/13/19 06:49 BP 95/68 L 12/13/19 06:50 Pulse Ox 98 12/10/19 01:48 Results & Data ([facility]) Current Inpatient Medications Current Inpatient Medications: Current Inpatient Medications Acetaminophen (Tylenol) 650 mg PO Q4H PRN PRN Reason: Headache or Minor Fever Stop: 01/09/20 06:35 Al Hydrox/Mg Hydrox/Simethicone (Maalox) 30 ml PO Q4H PRN PRN Reason: GI Upset Stop: 01/09/20 06:35 Bismuth Subsalicylate (Kaopectate) 15 ml PO PRN PRN PRN Reason: Loose Stool Stop: 01/09/20 06:35 Hydroxyzine HCl (Vistaril) 50 mg PO HSZ PRN PRN Reason: Insomnia Stop: 01/09/20 06:35 Hydroxyzine HCl (Vistaril) 25 mg PO Q4H PRN PRN Reason: Anxiety Stop: 01/09/20 06:35 Magnesium Hydroxide (Milk Of Magnesia) 30 ml PO DAILY PRN PRN Reason: Constipation Stop: 01/09/20 06:35 Olanzapine (Zyprexa) 5 mg PO Q6H PRN PRN Reason: psychosis Stop: 01/09/20 09:44 Olanzapine (Zyprexa) 10 mg PO HS JUSTIN Stop: 01/11/20 21:59 Last Admin: 12/12/19 21:17 Dose: 10 mg Documented by: Sodium Chloride ([place] Nasal) 1 - 2 sprays NA PRN PRN PRN Reason: Nasal Dryness/Congestion Stop: 01/09/20 06:35 Mental Health & Subst Abuse Tx Therapist Name of Therapist: unknown Japanese Interpreter Name of Japanese Interpreter: unknown Post Discharge Appointments Primary Care Physician Name Of Family Doctor: unknown
[2019-12-13] MEDS: NICOTINE POLACRILEX 2 MG GUM MT PRN (14:53)
[2019-12-13] MEDS: OLANZapine 10 MG TAB PO SCH (21:33)
--- NOTE | 2019-12-14 10:59 | Psychiatric Progress Note ---
Date of Service December 14, 2019 Impression / Recommendations Impression The patient is a 29-year-old male who lives alone in [place], recently dropped out of graduate school, and has a reported history of bipolar disorder type I but not currently in treatment or taking medication. He was admitted involuntarily after he presented to the ER with a friend due to manic and psychotic symptoms, as he was downtown, handing out thousands of dollars to strangers, had not been sleeping, went off his mood stabilizing medication, and was grossly disorganized and responding to hallucinations in the ER. On admission he was floridly manic and psychotic and unable to provide biographical information. He responded well to PRN olanzapine, so that has been scheduled. Little is known about his recent history, although it sounds as if he came to [employer] to pursue a PhD, but dropped out of school sometime in the past few months. His parents live in [place], and mother has provided collateral that he was previously diagnosed with bipolar disorder and prescribed lamotrigine, and was hospitalized in [place] in the past. He is refused to sign releases for past treatment records. Although sleep and psychosis are somewhat improved, he remains manic with poor behavioral control, and is now on a 303 involuntary commitment. He is at risk to himself as he is unable to provide for his own basic needs (as evidenced by his of outpatient treatment for bipolar disorder despite severe symptoms and history of hospitalization for mood disorder), and places others at risk due to his erratic behavior, hypersexuality, and lack of appropriate boundaries as evidenced by repeatedly touching and harassing female staff in the hospital, harassing female peers, and inability to control his behavior even here on the inpatient unit with frequent redirection and reality orientation. If he were to behave in this manner outside of the hospital, he would not only risk harming others, but also would place himself at risk of harm in retaliation for his behavior. Inpatient treatment remains medically necessary and is the least restrictive treatment option. (1) Bipolar 1 disorder: 12/10 -olanzapine 5 mg every 6 hours as needed. FLP and FG ordered for tish kim. -Medically necessary private room due to severity of psychotic and manic symptoms. Patient is excused from groups due to severity of psychotic symptoms/erratic behavior. -Expand database with information from mother, previous treatment records if we can identify them, and any local support/friends. On a 302 involuntary commitment, continue to gather information toward the need for ongoing involuntary commitment. 12/11 -schedule olanzapine 5 mg every morning and 10 mg at bedtime, and continue 5 mg as needed dose. -Patient was not fasting this morning, so fasting labs rescheduled for tomorrow. -Continue private room due to severity of psychotic and manic symptoms. -Excused from groups as unable to participate appropriately, and postpone family meeting until under better symptomatic control. 12/12 -patient is somnolent this morning, so held a.m. dose of olanzapine. FLP and fasting glucose checked today for monitoring on an atypical antipsychotic, all values are within normal limits. -Continue private room and excuse patient from groups due to hypersexual and inappropriate behavior. -File for 303 involuntary commitment hearing to be held tomorrow. -Assist patient to apply for medical assistance, and refer for outpatient case management services. 12/13 -303 involuntary commitment granted. -Continue olanzapine 10 mg at bedtime and 5 mg as needed dose. -Continue private room, patient may attend groups as tolerated/if able to remain in behavioral control. Patient was advised of his responsibilities as far as appropriate behavior, not touching or harassing others on the unit, and expressed understanding. -Recommend family meeting with parents who are in [place], and referral for outpatient treatment as he states he plans to remain in the area until his lease expires. He does not have insurance, so will refer to the base service unit for assistance with outpatient treatment. 12/14 - Continue treatment plan as above - pt refusing to titrate olanzapine, but is agreeable with continuing the medication after discharge - If patient demonstrates willingness to continue medications, consider if there is an alternative agent that may be better tolerated - valproic acid would be one option - Attempt to schedule support meeting with patient's friend, continuing to gather collateral information as available in the interim Risk Factors Assessment Male: Yes : Yes Health Problems: No Mental Health Diagnoses: Yes Previous Psychiatric Hospitalization: Yes Protective Factors Assessment Taoism Beliefs: Yes : No Responsible for Young Children: No Employed: No Stable Relationships: No (Patient reports he has not spoken to his brother in months and is distressed about that, and has few friends/supports here.) Supportive Family: Yes Good Rapport with Provider: No (No outpatient care) Interval History Identifying Information NICOLA PULLIAM is a 29-year-old M who currently lives in [place], has a history of bipolar disorder, and was admitted on 12/10/19 05:58 on a 302 involuntary commitment for shanice and psychosis. He is on a 303 involuntary commitment as of 12/13/2019. Chief Complaint "I woke up frustrated. I do not believe I should be here. The story is actually really hilarious." Review of Systems Notes Constitutional: reports sedation after taking olanzapine Cardiovascular: denied Respiratory: denied Gastrointestinal: reports increased appetite with olanzapine Neurological: denied Psychiatric: denies symptoms other than stated above Total of at least 10 systems reviewed, pertinent positives as above and in HPI. Sleep Information Total Hours of Sleep: 7 Sleep Comments: pt spent most of the shift in the day room. he refused PRN medications. Meal Information Percent Meal Consumed - Breakfast: 100 Percent Meal Consumed - Lunch: 100 Percent Meal Consumed - Dinner: 100 Nutrition Comment: pt. sleeping Subjective Subjective Patient was seen & assessed and interval progress reviewed with treatment team. Staff reports the patient continues to present as manic, expansive, and intrusive on the unit. He continues to verbalize that he does not feel he is mentally ill, though was briefly able to verbalize that he believes the medication is helping his symptoms. Patient did complete an application for medical assistance. His friend has reached out to offer support, and plan is to attempt to schedule a support meeting to gather additional information on patient's presentation. Patient was seen today to assess progress since admission. He provides verbal consent to allow Melanie Davis PA-C to observe brianna kingsley's encounter. Patient maintains that he does not feel that he needs psychiatric treatment, stating "it is actually really hilarious." He describes his admission situation as "a catch 22" as patient states he does not feel he is mentally ill, but is aware that I am continuing to state this "I am actually just giving a reason to keep me here longer." Patient was asked to recount the events that led to his presentation to the ED, with specific focus on which behaviors may have been unusual for him. Patient states "it was just a usual Thursday. The only thing that was different was that the stars aligned." Patient was unable to explain exactly what this phrase meant, but stated that the day of his presentation he had decided he was no longer interested in continuing in his graduate program at [employer]. He states that he gave colunga to the [employer] of his college, along with a long list of grievances. Patient states that he withdrew money from his account, stating "I was kind of saying kathye, I took out all the money I made while I was here and donated it. It is kind of like tipping, [facility] for providing me with this experience." Patient admits that he gave 100s of dollars to numerous organizations, and then continued on with his evening. When asked if this behavior was unusual for him, patient states that it is not, admitting that he considered doing something similar when he left [place] but that he did not feel us that he was worthy of his tipping, "so I stiffed [place]." Patient states that it was only due to concerns reported by his friends that he agreed to coming to the emergency room, but continues to believe he is not mentally ill. When asked about inappropriate interactions with female staff, the patient states "I'm flirty, that's me fli rting." Despite these beliefs, patient is open and talking about his history of "depression." He admits to previous trial of bupropion, which he states "propelled me into psychosis because of its dopaminergic effects." He states that he tolerated lamotrigine, at a dose that he believes to be 200 mg again stating this medication was prescribed for depression. He continues to request that we speak with his psychiatrist from [place], and today provides additional insight into their history. Patient states "I will only trust you to make medication adjustments if it is done in the continuity of care with Dr. Tabares. He did tell me that he believes that I function in a constant state of hypomania." Despite providing the patient with education on bipolar disorder, as it relates to the terms he is using and the behavior he is describing, the patient maintains that he has only ever been diagnosed with depression. Patient maintains, "I feel fine, but I felt fine from the get go." He does report increased appetite and sedation, which he believes are related to ongoing use of olanzapine. Patient continues to deny that there was any drug use prior to this hospitalization. Patient denies suicidal ideation, and denies other needs or concerns at this time. He does ask questions as it relates to the legal proceedings of his 303, information was provided and patient was encouraged to reach out to his assigned public safety officer for any additional concerns. Expectations associated with safe discharge planning were discussed. Pt is agreeable with having a meeting with his friend and also with referrals for outpatient psychiatric treatment at discharge. Physical Exam Psychiatric Orientation: alert and oriented x 3 Apperance: appropriately dressed and appropriately groomed Eye Contact: good eye contact Motor Behavior: steady gait and station and no abnormal motor movements Speech: + pressured speech (somewhat rapid) and + loud speech Affect: euthymic affect (expansive ) Mood: no depressed mood ("I feel fine, but then again I felt fine from the get go") and no anxious mood Thought Process: + looseness of associations and + confabulations (mildly so, seemingly attempting to rationalize manic behavior) Thought Content: + preoccupation (with feeling he does not need psychiatric treatment) and + paranoid Suicidal Thoughts: denies suicidal thoughts Homicidal Thoughts: denies homicidal thoughts Hallucinations: no auditory hallucinations and no visual hallucinations Cognition: attention grossly intact and language grossly intact Insight: + poor insight Judgement: + poor judgement Vital Signs (Past 24 Hours) Last Vital Signs Temp 36.4 C L 12/14/19 06:45 Pulse 52 L 12/14/19 06:46 Resp 16 12/14/19 06:45 BP 120/86 12/14/19 06:46 Pulse Ox 98 12/10/19 01:48 Results & Data ([facility]) Current Inpatient Medications Current Inpatient Medications: Current Inpatient Medications Acetaminophen (Tylenol) 650 mg PO Q4H PRN PRN Reason: Headache or Minor Fever Stop: 01/09/20 06:35 Al Hydrox/Mg Hydrox/Simethicone (Maalox) 30 ml PO Q4H PRN PRN Reason: GI Upset Stop: 01/09/20 06:35 Bismuth Subsalicylate (Kaopectate) 15 ml PO PRN PRN PRN Reason: Loose Stool Stop: 01/09/20 06:35 Hydroxyzine HCl (Vistaril) 50 mg PO HSZ PRN PRN Reason: Insomnia Stop: 01/09/20 06:35 Hydroxyzine HCl (Vistaril) 25 mg PO Q4H PRN PRN Reason: Anxiety Stop: 01/09/20 06:35 Magnesium Hydroxide (Milk Of Magnesia) 30 ml PO DAILY PRN PRN Reason: Constipation Stop: 01/09/20 06:35 Nicotine Polacrilex (Nicorette 2mg) 1 piece MT PRN PRN PRN Reason: nicotine cravings Stop: 01/12/20 14:47 Last Admin: 12/13/19 14:53 Dose: 1 piece Documented by: Olanzapine (Zyprexa) 5 mg PO Q6H PRN PRN Reason: psychosis Stop: 01/09/20 09:44 Olanzapine (Zyprexa) 10 mg PO HS JUSTIN Stop: 01/11/20 21:59 Last Admin: 12/13/19 21:33 Dose: 10 mg Documented by: Sodium Chloride ([place] Nasal) 1 - 2 sprays NA PRN PRN PRN Reason: Nasal Dryness/Congestion Stop: 01/09/20 06:35 Mental Health & Subst Abuse Tx Therapist Name of Therapist: unknown Manager Strategy Name of Manager Strategy: unknown Post Discharge Appointments Primary Care Physician Name Of Family Doctor: unknown
[2019-12-14] MEDS: NICOTINE POLACRILEX 2 MG GUM MT PRN (17:06)
[2019-12-14] MEDS: OLANZapine 10 MG TAB PO SCH (21:04)
[2019-12-15] MEDS: NICOTINE POLACRILEX 2 MG GUM MT PRN (08:06)
--- NOTE | 2019-12-15 09:18 | Psychiatric Progress Note ---
Date of Service December 15, 2019 Impression / Recommendations Impression The patient is a 29-year-old male who lives alone in [place], recently dropped out of graduate school, and has a reported history of bipolar disorder type I but not currently in treatment or taking medication. He was admitted involuntarily after he presented to the ER with a friend due to manic and psychotic symptoms, as he was downtown, handing out thousands of dollars to strangers, had not been sleeping, went off his mood stabilizing medication, and was grossly disorganized and responding to hallucinations in the ER. On admission he was floridly manic and psychotic and unable to provide biographical information. He responded well to PRN olanzapine, so that has been scheduled. His parents live in [place], and mother has provided collateral that he was previously diagnosed with bipolar disorder and prescribed lamotrigine, and was hospitalized in [place] in the past. Although sleep and psychosis are somewhat improved, he remains manic with poor behavioral control, and is now on a 303 involuntary commitment. He is at risk to himself as he is unable to provide for his own basic needs (as evidenced by his of outpatient treatment for bipolar disorder despite severe symptoms and history of hospitalization for mood disorder), and places others at risk due to his erratic behavior, hypersexuality, and lack of appropriate boundaries as evidenced by repeatedly touching and harassing female staff in the hospital, harassing female peers, and inability to control his behavior even here on the inpatient unit with frequent redirection and reality orientation. Collateral obtained from a close friend during a support meeting supports that patient is not presently at baseline, and reports continue to support a bipolar I disorder diagnosis. If he were to behave in this manner outside of the hospital, he would not only risk harming others, but also would place himself at risk of harm in retaliation for his behavior. Inpatient treatment remains medically necessary and is the least restrictive treatment option, as patient lack insight as to the severity of his condition and is unwilling to participate in appropriate conversations regarding treatment expectations and discharge planning. (1) Bipolar 1 disorder: 12/10 -olanzapine 5 mg every 6 hours as needed. FLP and FG ordered for tomorrow. -Medically necessary private room due to severity of psychotic and manic symptoms. Patient is excused from groups due to severity of psychotic symptoms/erratic behavior. -Expand database with information from mother, previous treatment records if we can identify them, and any local support/friends. On a 302 involuntary commitment, continue to gather information toward the need for ongoing involuntary commitment. 12/11 -schedule olanzapine 5 mg every morning and 10 mg at bedtime, and continue 5 mg as needed dose. -Patient was not fasting this morning, so fasting labs rescheduled for tomorrow. -Continue private room due to severity of psychotic and manic symptoms. -Excused from groups as unable to participate appropriately, and postpone family meeting until under better symptomatic control. 12/12 -patient is somnolent this morning, so held a.m. dose of olanzapine. FLP and fasting glucose checked today for monitoring on an atypical antipsychotic, all values are within normal limits. -Continue private room and excuse patient from groups due to hypersexual and inappropriate behavior. -File for 303 involuntary commitment hearing to be held tomorrow. -Assist patient to apply for medical assistance, and refer for outpatient case management services. 12/13 -303 involuntary commitment granted. -Continue olanzapine 10 mg at bedtime and 5 mg as needed dose. -Continue private room, patient may attend groups as tolerated/if able to remain in behavioral control. Patient was advised of his responsibilities as far as appropriate behavior, not touching or harassing others on the unit, and expressed understanding. -Recommend family meeting with parents who are in [place], and referral for outpatient treatment as he states he plans to remain in the area until his lease expires. He does not have insurance, so will refer to the base service unit for assistance with outpatient treatment. 12/14 - Continue treatment plan as above - pt refusing to titrate olanzapine, but is agreeable with continuing the medication after discharge - If patient demonstrates willingness to continue medications, consider if there is an alternative agent that may be better tolerated - valproic acid would be one option - Attempt to schedule support meeting with patient's friend, continuing to gather collateral information as available in the interim 12/15 - Pt reporting preference at this time continue olanzapine - unable to recognize severity of his illness, and therefore unwilling to discuss other medication options - Pt was informed that titration of the medication may be recommended during his hospitalization, but that other agents could be discussed should he desire a more comprehensive review - Pt continues to demonstrate very limited insight (or possibly denial) into the severity of his mental health condition. He continues to deflect difficult questions and is more focused on perceived injustice of involuntary commitment than addressing his mental health needs in preparation for discharge - As ongoing conversation occurs, there seem to be significant underlying personality traits - specifically narcissistic personality disorder, which may be clouding the patient's ability to accept his diagnosis and recognize the serious impact of his behavior. - Dr. Tabares - psychiatrist who previously treated patient during his time in [place] - is available to provide collateral information between 1100 and 1400 tomorrow (1000 and 1300 Central time). Will attempt to reach out to him tomorrow. Risk Factors Assessment Male: Yes : Yes Health Problems: No Mental Health Diagnoses: Yes Previous Psychiatric Hospitalization: Yes Protective Factors Assessment Sikh Beliefs: Yes : No Responsible for Young Children: No Employed: No Stable Relationships: No (Patient reports he has not spoken to his brother in months and is distressed about that, and has few friends/supports here.) Supportive Family: Yes Good Rapport with Provider: No (No outpatient care) Interval History Identifying Information NICOLA PULLIAM is a 29-year-old M who currently lives in [place], has a history of bipolar disorder, and was admitted on 12/10/19 05:58 on a 302 involuntary commitment for shanice and psychosis. He is on a 303 involuntary commitment as of 12/13/2019. Chief Complaint "Hello everyone. How's it going?" Review of Systems Notes Constitutional: denied Cardiovascular: denied Respiratory: denied Gastrointestinal: denied Neurological: denied Psychiatric: denies symptoms other than stated above Total of at least 10 systems reviewed, pertinent positives as above and in HPI. Sleep Information Total Hours of Sleep: 7.25 Sleep Comments: pt spent most of the shift in the day room. he refused PRN medications. Meal Information Percent Meal Consumed - Breakfast: 100 Percent Meal Consumed - Lunch: 100 Percent Meal Consumed - Dinner: 100 Nutrition Comment: pt. sleeping Subjective Subjective Patient was seen & assessed and interval progress reviewed with nursing and social work. Staff report the patient did complete referral for a foster care case manager through the [facility]. He is scheduled to have a meeting with a friend this morning. Patient has made it clear that he is planning to appeal his 303, and for p urposes of ensuring information provided by staff is consistent - this provider participated in the patient's family meeting to complete today's assessment (see Family Therapy Session note for additional details). Pt is joined by his friend, who begins the session by sharing his concerns regarding the patient's behavior prior to the patient's hospitalization. 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 He indicates the patient's speech was much faster and that he seemed paranoid. Additional accounts from the evening of admission suggest the patient had made several erratic stops at various businesses downtown to similarly drop off "donations." At one store, it was reported the patient was "shrieking, reading signs out loud, and picking up items and moving them around." He states the patient also began posting about his donations on social media. The friend indicates that he has only known the patient since 07/2019, but that his present behavior has not previously been observed. Despite this, he does state "I can see the growth from July to now - looking back, I can see how we got here." Friend does openly tell the patient that he feels he is in denial and that he is having difficulty accepting his recent losses. He indicates that the patient is likely grieving the loss of his Ph.D program more than he lets on, but does indicate the patient reported feeling victimized and discriminated against. When discussing the patient's behavior on the unit, his inappropriate boundaries with a female staff was brought up. Friend states a similar situation apparently happened recently at a local business they frequent - though friend states charges have not been filed. Friend was able to discuss concerns in a firm but calm way; however, patient remained unable to process these reports and continued to state that no one should be concerned. Pt continued to attempt to rationalize his behavior during the session, interjecting numerous reasons as to why his behavior should not have been concerning. In regard to donating money, the patient states he is convinced that he is smart enough to make a $100,000 salary some day - so it is worth going into dept now, as he will be more than able to make up for it with his future career. When challenged on this idea, the patient states "is it grandiose? Maybe. Until I prove it to you. It's a grandiose reality." He also admits that he believed his friend was "pulling a prank on me" as it relates to the patient being brought to the hospital - "I couldn't believe it!" Pt states that he believes he had been feeling very good prior to admission - stating "I've never been this productive in terms of my writing, we've been making music. We've been doing so much." Pt was limited in his ability to review his current diagnosis and treatment plan with this provider. There were numerous attempts made to discuss diagnosis of bipolar I disorder, which patient deflected. He would ask questions, and then change the conversation to an unrelated topic. During the entire encounter, the patient was laughing inappropriately and joking. He had difficulty remaining on topic, often derailing the conversation with statements related to his legal concerns or attempts to rationalize the statements being made. Pt does indicate that he does not believe he is ill, but reports "the longest I've ever been off my lamotrigine was this past week." Attempts were made to provide education as to how this may have contributed to his presentation; however, patient was unable to tolerate a productive conversation regarding his diagnosis at this time. Physical Exam Psychiatric Orientation: alert, oriented x 3 and + guarded (only superficially cooperative initially, then becomes very defensive ) Apperance: appropriately dressed (nicely dressed, wearing sweater over top of button down shirt w/dress pants), appropriately groomed and appeared stated age Eye Contact: good eye contact Motor Behavior: steady gait and station and no abnormal motor movements (aside from mild restlessness, holding up finger to interject during convo) Speech: + pressured speech (rapid speech) Affect: euthymic affect (expansive, inappropriate laughter and joking) Mood: no depressed mood ("I'm fine. I am stable now, I was stable before." ) Continues attempts to rationalize description of observed affect/behavior: "I'm just happy, creative" and "I talk fast sometimes" Thought Process: goal directed thought process, + tangential thought process (with possible volitional deflecting of difficult conversations), + perseve ration (remains very focused on discharge, feels he is being held unlawfully) and + confabulations (patient's reports of his manic state are vastly different than friend's) Deflects from difficulty inquires/conversations with unrelated questions/statements - "that's a nice necklace", "isn't this benedicto great, by the way?" Thought Content: + preoccupation (with discharge and presenting his case for 303 appeal ) and + delusions Question if true delusions vs pt upholding story in attempt to rationalize his behavior prior to admission. It is felt that patient may be more aware of the inappropriateness of his behavior and is simply in denial regarding the severity of his mental illness. Suicidal Thoughts: denies suicidal thoughts Homicidal Thoughts: denies homicidal thoughts Hallucinations: no auditory hallucinations and no visual hallucinations Cognition: language grossly intact; + recent memory not intact and + attention not intact Estimated Intelligence: + above average estimated intelligence Insight: + poor insight Judgement: + poor judgement Vital Signs (Past 24 Hours) Last Vital Signs Temp 36.4 C L 12/15/19 06:51 Pulse 61 12/15/19 06:53 Resp 16 12/15/19 06:51 BP 122/87 12/15/19 06:53 Pulse Ox 98 12/10/19 01:48 Results & Data ([facility]) Current Inpatient Medications Current Inpatient Medications: Current Inpatient Medications Acetaminophen (Tylenol) 650 mg PO Q4H PRN PRN Reason: Headache or Minor Fever Stop: 01/09/20 06:35 Al Hydrox/Mg Hydrox/Simethicone (Maalox) 30 ml PO Q4H PRN PRN Reason: GI Upset Stop: 01/09/20 06:35 Bismuth Subsalicylate (Kaopectate) 15 ml PO PRN PRN PRN Reason: Loose Stool Stop: 01/09/20 06:35 Hydroxyzine HCl (Vistaril) 50 mg PO HSZ PRN PRN Reason: Insomnia Stop: 01/09/20 06:35 Hydroxyzine HCl (Vistaril) 25 mg PO Q4H PRN PRN Reason: Anxiety Stop: 01/09/20 06:35 Magnesium Hydroxide (Milk Of Magnesia) 30 ml PO DAILY PRN PRN Reason: Constipation Stop: 01/09/20 06:35 Nicotine Polacrilex (Nicorette 2mg) 1 piece MT PRN PRN PRN Reason: nicotine cravings Stop: 01/12/20 14:47 Last Admin: 12/15/19 08:06 Dose: 1 piece Documented by: Olanzapine (Zyprexa) 5 mg PO Q6H PRN PRN Reason: psychosis Stop: 01/09/20 09:44 Olanzapine (Zyprexa) 10 mg PO HS JUSTIN Stop: 01/11/20 21:59 Last Admin: 12/14/19 21:04 Dose: 10 mg Documented by: Sodium Chloride ([place] Nasal) 1 - 2 sprays NA PRN PRN PRN Reason: Nasal Dryness/Congestion Stop: 01/09/20 06:35 Mental Health & Subst Abuse Tx Therapist Name of Therapist: unknown Slot Router Name of Slot Router: unknown Post Discharge Appointments Primary Care Physician Name Of Family Doctor: unknown
[2019-12-15] MEDS: OLANZapine 10 MG TAB PO SCH (20:37)
--- NOTE | 2019-12-16 11:26 | Communication Note ---
Date of Service: December 16, 2019 This PA-C was able to reach out to Dr. Robert Tabares MD ([facility]- Psychiatry Department) via phone to gather collateral information regarding the patient's psychiatric history. Number provided by Dr. Tabares for use was . Dr. Tabares suggests he began his history with the patient during an inpatient psychiatric hospitalization in 06/2018. Pt was admitted at that time for depression and suicidal ideation, reporting feeling upset about the direction his graduate program was heading. Pt had reported a strained relationship with his parents, specifically his father as well. It was reported the patient has struggled with depression and suicidality as a child/teen as well, but it was unknown if he had prior hospitalizations. Dr. Tabares states that after the patient's hospitalization, he continued to follow the patient for medication management as well as for psychotherapy. He admits there was concern for narcissistic personality characteristics, with attempts to process these leading to defensiveness by the patient. Dr. Tabares also mentions the patient historically had "always danced around hypomania." He continued to work with the patient on an outpatient basis, and was then made aware of an inpatient psychiatric admission occurring at another facility in 11/2018. Dr. Tabares was informed the patient presented to this facility with psychosis - believing he had been captured by [employer] for an elaborate scheme. He also was reportedly religiously preoccupied (exceeding baseline, patient had already been focused on christian studies for graduate school). Pt was reportedly preoccupied with converting to [employer], and also reportedly believed he was the [facility]. Pt was hospitalized for 1 weeks, with reports his psychotic symptoms lasted about 1-2 days of that stay. Pt was reportedly initiated on olanzapine at that time, which was effective but later discontinued due to mercy ght gain. On an outpatient basis, patient had also agreed to trials of lithium for about 6-8 months (stopped taking the medication due to feeling "less emotionally reactive", which patient did not like). After ongoing discussion, patient was reportedly agreeable to "lamotrigine or nothing", so was started on this medication. It was reported that the medication was helpful to provide mood stability, and returned patient to a predominantly depressed state. Around April or May of 2019, patient had announced his plan to pursue a graduate program at [employer], and Dr. Tabares reports recommendation to make outpatient psychiatric providers a priority was suggested. Dr. Tabares states he received an email from the patient shortly after his arrival at [facility] stating he had found providers and was doing well. Dr. Tabares's clinical interpretation was that patient met criteria for a bipolar disorder, specifically after his second hospitalization in [place] when he presented with psychosis. He states the patient has regularly functioned in the realm of hypomania. He also states the patient had been somewhat preoccupied with his second hospitalization, wearing his wrist band for several weeks after discharge and posting about his stay on social media. Dr. Tabares indicates that patient has had a difficult time accepting the idea that he has bipolar disorder. It is has reportedly been difficult to tease out if patient has true criteria for narcissistic personality disorder versus "manic grandiosity" of his underlying bipolar. While patient is genuinely interested in christian studies, Dr. Tabares actually states the patient's preoccupation with [employer]ian was significantly reduced after his second psychiatric hospitalization. 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 Dr. Tabares was surprised to hear of patient's inappropriate sexual boundaries in the context of this manic episode - admitting that his current behavior has not been matched during Dr. Tabares's experience caring for the patient. He does offer to speak with the patient if clinical team feels this would be beneficial in his treatment. He reports best means of communication would be to coordinate a time via email for a phone call to occur.
--- NOTE | 2019-12-16 15:21 | Psychiatric Progress Note ---
Date of Service December 16, 2019 Impression / Recommendations Impression The patient is a 29-year-old male who lives alone in [place], recently dropped out of graduate school, and has a reported history of bipolar disorder type I but not currently in treatment or taking medication. He was admitted involuntarily after he presented to the ER with a friend due to manic and psychotic symptoms, as he was downtown, handing out thousands of dollars to strangers, had not been sleeping, went off his mood stabilizing medication, and was grossly disorganized and responding to hallucinations in the ER. On admission he was floridly manic and psychotic and unable to provide biographical information. He responded well to PRN olanzapine, so that has been scheduled. His parents live in [place], and mother has provided collateral that he was previously diagnosed with bipolar disorder and prescribed lamotrigine, and was hospitalized in [place] in the past. Although sleep and psychosis are somewhat improved, he remains manic with poor behavioral control, and is now on a 303 involuntary commitment. He is at risk to himself as he is unable to provide for his own basic needs (as evidenced by his of outpatient treatment for bipolar disorder despite severe symptoms and history of hospitalization for mood disorder), and places others at risk due to his erratic behavior, hypersexuality, and lack of appropriate boundaries as evidenced by repeatedly touching and harassing female staff in the hospital, harassing female peers, and inability to control his behavior even here on the inpatient unit with frequent redirection and reality orientation. Collateral obtained from a close friend during a support meeting supports that patient is not presently at baseline, and reports continue to support a bipolar I disorder diagnosis. If he were to behave in this manner outside of the hospital, he would not only risk harming others, but also would place himself at risk of harm in retaliation for his behavior. Inpatient treatment remains medically necessary and is the least restrictive treatment option, as patient lack insight as to the severity of his condition and is unwilling to participate in appropriate conversations regarding treatment expectations and discharge planning. The patient is beginning to respond favorably to olanzapine 10 mg at bedtime. Specifically, the patient's affect is less expansive and labile. He continues to exhibit some non-delusional grandiosity, and continues to exhibit poor judgment as evidenced by his continued insistence that giving away thousands of dollars, including to strangers on the streets, is perfectly reasonable because he is "investing" in the Goodwill of other people, and because even though he is currently about $80,000 in debt from student loans and living expenses, he can easily make "six-figure salaries" and pay off his debt very quickly. His behavior on the unit has been calm more appropriate, and he has been less hypersexual and less intrusive. He continues to believe that certain members of the treatment team are either against him or are "grossly incompetent" but, today, he says that in retrospect he realizes that "most of the staff here are really good. The nurses are great. The activity therapist is great. You're great." (1) Bipolar 1 disorder: 12/10 -olanzapine 5 mg every 6 hours as needed. FLP and FG ordered for tomorrow. -Medically necessary private room due to severity of psychotic and manic symptoms. Patient is excused from groups due to severity of psychotic symptoms/erratic behavior. -Expand database with information from mother, previous treatment records if we can identify them, and any local support/friends. On a 302 involuntary commitment, continue to gather information toward the need for ongoing involuntary commitment. 12/11 -schedule olanzapine 5 mg every morning and 10 mg at bedtime, and continue 5 mg as needed dose. -Patient was not fasting this morning, so fasting labs rescheduled for tomorrow. -Continue private room due to severity of psychotic and manic symptoms. -Excused from groups as unable to participate appropriately, and postpone family meeting until under better symptomatic control. 12/12 -patient is somnolent this morning, so held a.m. dose of olanzapine. FLP and fasting glucose checked today for monitoring on an atypical antipsychotic, all values are within normal limits. -Continue private room and excuse patient from groups due to hypersexual and inappropriate behavior. -File for 303 involuntary commitment hearing to be held tomorrow. -Assist patient to apply for medical assistance, and refer for outpatient case management services. 12/13 -303 involuntary commitment granted. -Continue olanzapine 10 mg at bedtime and 5 mg as needed dose. -Continue private room, patient may attend groups as tolerated/if able to remain in behavioral control. Patient was advised of his responsibilities as far as appropriate behavior, not touching or harassing others on the unit, and expressed understanding. -Recommend family meeting with parents who are in [place], and referral for outpatient treatment as he states he plans to remain in the area until his lease expires. He does not have insurance, so will refer to the base service unit for assistance with outpatient treatment. 12/14 - Continue treatment plan as above - pt refusing to titrate olanzapine, but is agreeable with continuing the medication after discharge - If patient demonstrates willingness to continue medications, consider if there is an alternative agent that may be better tolerated - valproic acid would be one option - Attempt to schedule support meeting with patient's friend, continuing to gather collateral information as available in the interim 12/15 - Pt reporting preference at this time continue olanzapine - unable to recognize severity of his illness, and therefore unwilling to discuss other medication options - Pt was informed that titration of the medication may be recommended during his hospitalization, but that other agents could be discussed should he desire a more comprehensive review - Pt continues to demonstrate very limited insight (or possibly denial) into the severity of his mental health condition. He continues to deflect difficult questions and is more focused on perceived injustice of involuntary commitment than addressing his mental health needs in preparation for discharge - As ongoing conversation occurs, there seem to be significant underlying personality traits - specifically narcissistic personality disorder, which may be clouding the patient's ability to accept his diagnosis and recognize the serious impact of his behavior. - Dr. Tabares - psychiatrist who previously treated patient during his time in [place] - is available to provide collateral information between 1100 and 1400 tomorrow (1000 and 1300 Central time). Will attempt to reach out to him tomorrow. 12/16 -Dr. Tabares, the patient's former psychiatrist in [place], was contacted today by [facility] PA-C. A written report of the conversation is pending. Noted was the fact that Dr. Tabares indicated that the patient had been hospitalized in 2018 because of depression and suicidal ideation, and again in 2019 for "psychosis." -The patient's condition appears to be improving. He has been less intrusive, and his behavior on the unit has been more appropriate. He continues to so symptoms of shanice including pressured speech, expansive mood, and poor judgment. He also remains suspicious of the motives of various staff members and is continuing to threaten to "otilio" [facility] for improperly committing him. -Despite the above threat, the patient has been generally cooperative. He indicates that he feels that he should go back on lamotrigine because he feels that it "evens [him] out" and he feels the hospital should have known to put him back on it when he was admitted. Material risks and anticipated benefits of lamotrigine were reviewed with the patient. Material risks discussed included, but were not not limited to, Flores-Cody syndrome. The patient indicated that he had not developed a rash at any time in the past while taking lamotrigine. He also says that he feels that he may have received some benefit from Zyprexa because it is helping him sleep. -Patient reports that he is not experiencing any suicidal thoughts. He is also future oriented, and tells me that he hopes to apply to other universities, including [employer], in order to once again pursue his graduate studies since things did not work out for him at [employer]. ("Just not the right fit.") He also reports that he is not having any thoughts of harming other people. Risk Factors Assessment Male: Yes : Yes Health Problems: No Mental Health Diagnoses: Yes Previous Psychiatric Hospitalization: Yes Protective Factors Assessment Church Beliefs: Yes : No Responsible for Young Children: No Employed: No Stable Relationships: No (Patient reports he has not spoken to his brother in months and is distressed about that, and has few friends/supports here.) Supportive Family: Yes Good Rapport with Provider: No (No outpatient care) Interval History Identifying Information NICOLA PULLIAM is a 29-year-old M who currently lives in [place], has a history of bipolar disorder, and was admitted on 12/10/19 05:58 on a 302 involuntary commitment for shanice and psychosis. He is on a 303 involuntary commitment as of 12/13/2019. Chief Complaint "I was donating money". Review of Systems Sleep Information Total Hours of Sleep: 6.75 Sleep Comments: pt spent most of the shift in the day room. he refused PRN medications. Meal Information Percent Meal Consumed - Breakfast: 100 Percent Meal Consumed - Lunch: 100 Percent Meal Consumed - Dinner: 100 Nutrition Comment: pt. sleeping Subjective Subjective Patient was seen & assessed and interval progress reviewed with treatment team. Met with the patient individually in order to assess his current mental status, evaluate his response to treatment, make any necessary changes to his treatment regimen in coordination with the patient, and address issues and concerns that may arise. The patient began by telling me that he wanted our conversation "to be recorded." I explained that that would not be possible, and when I asked him why he would want to recorded he said "because I cannot trust anybody here. I am filing a major lawsuit against everyone." However, subsequent to that, the patient became significantly more cooperative. He often questioned and challenged reports that I had heard. For example, when I explained that our impression was that he is experiencing a manic episode, he said, "Prove it. What of the symptoms?" I explained that he was demonstrating an expansive and irritable mood, impulsive behaviors such as giving way significant sums of money while he is in debt, and engaging in inappropriate sexual behaviors such as putting his arm around a nurse and saying "when does the kissing begin?" and, reportedly, attempting to engage in inappropriate sexual behavior with an employee at a local caf. However, the patient repeatedly interrupt me and either denied the veracity of what was asserted, or sought to normalize it. For example, he said "I know for a fact that I can make a 6 figure salary, probably around $300,000 a year, anytime I want to. I am a really smart benedicto. Why should not I donate money? Yes, I am in debt, but people spend money when they are in debt." I explained that I had heard that he was giving money away to various people, including various businesses and individuals. He responded "no I am not giving it away I am investing. I am investing in the good will of others." He also asserted that the hospital had deliberately placed him on Zyprexa during the day, and his experience of increased sedation was because of a "mistake" and not giving him the Zyprexa at bedtime. He argued with me regarding the meanings of "QD" and "HS", but eventually accepted my explanation of the meaning of both abbreviations. Further, the patient said that he wanted "Dr. Tabares" to treat him here in the hospital. I was able to ascertain that Dr. Tabares is a psychiatrist who lives and works in the [place] area, and the patient said "That is no problem. Did you ever here of telephonic medicine?" He interrupted several times and I tried to explain that Dr. Tabares would need to have hospital privileges here at [facility] in order to provide treatment here, and that he could not provide the treatment telephonically. Eventually, the patient was able to tell me that he felt that he was doing better in response to Zyprexa at bedtime. He also says that he wishes that he were back on lamotrigine, and says that prior to his admission he had been taking lamotrigine 200 mg a day. His explanation is that he feels that lamotrigine "evens him out," although he tells me that he does not believe that his correct diagnosis is bipolar disorder. Instead, he says that it might be "major depressive disorder," or, as he says Dr. Tabares tells him, "functionally hypomanic." Physical Exam Psychiatric Orientation: alert, oriented x 3 and cooperative Apperance: appropriately dressed, appropriately groomed and appeared stated age Eye Contact: good eye contact Motor Behavior: + psychomotor agitation The patient appears restless and fidgets frequently in his chair. Speech: + pressured speech Expansive. "Great." Thought Process: + tangential thought process Thought Content: reality based without delusions Non-delusional grandiosity, such as "I can make 300 K a year anytime I want." He also tells me that he dropped out of a PhD program at [employer] because "they want to blame everything on white men. Throughout history, white men are blamed for everything that goes wrong." Suicidal Thoughts: denies suicidal thoughts Homicidal Thoughts: denies homicidal thoughts Hallucinations: no auditory hallucinations and no visual hallucinations Cognition: recent memory grossly intact, remote memory grossly intact and language grossly intact Estimated Intelligence: + above average estimated intelligence Insight: + poor insight Judgement: + poor judgement Vital Signs (Past 24 Hours) Last Vital Signs Temp 36.9 C 12/16/19 06:00 Pulse 79 12/16/19 06:00 Resp 16 12/16/19 06:00 BP 106/72 12/16/19 06:00 Pulse Ox 98 12/10/19 01:48 Results & Data ([facility]) Current Inpatient Medications Current Inpatient Medications: Current Inpatient Medications Acetaminophen (Tylenol) 650 mg PO Q4H PRN PRN Reason: Headache or Minor Fever Stop: 01/09/20 06:35 Al Hydrox/Mg Hydrox/Simethicone (Maalox) 30 ml PO Q4H PRN PRN Reason: GI Upset Stop: 01/09/20 06:35 Bismuth Subsalicylate (Kaopectate) 15 ml PO PRN PRN PRN Reason: Loose Stool Stop: 01/09/20 06:35 Hydroxyzine HCl (Vistaril) 50 mg PO HSZ PRN PRN Reason: Insomnia Stop: 01/09/20 06:35 Hydroxyzine HCl (Vistaril) 25 mg PO Q4H PRN PRN Reason: Anxiety Stop: 01/09/20 06:35 Magnesium Hydroxide (Milk Of Magnesia) 30 ml PO DAILY PRN PRN Reason: Constipation Stop: 01/09/20 06:35 Nicotine Polacrilex (Nicorette 2mg) 1 piece MT PRN PRN PRN Reason: nicotine cravings Stop: 01/12/20 14:47 Last Admin: 12/15/19 08:06 Dose: 1 piece Documented by: Olanzapine (Zyprexa) 5 mg PO Q6H PRN PRN Reason: psychosis Stop: 01/09/20 09:44 Olanzapine (Zyprexa) 10 mg PO HS JUSTIN Stop: 01/11/20 21:59 Last Admin: 12/15/19 20:37 Dose: 10 mg Documented by: Sodium Chloride ([place] Nasal) 1 - 2 sprays NA PRN PRN PRN Reason: Nasal Dryness/Congestion Stop: 01/09/20 06:35 Mental Health & Subst Abuse Tx Therapist Name of Therapist: unknown Ict Teacher Name of Ict Teacher: [facility] (Administrative ) Phone Number for Ict Teacher: [phone] Date of Appointment with Ict Teacher: 12/21/19 Time of Appointment with Ict Teacher: 2:00 p.m. Case Management Appointment Comment: [id number] [place] [address] Post Discharge Appointments Primary Care Physician Name Of Family Doctor: unknown Contact Information Discharge Discharge Address: [address] [place] [address], [place] [address]
[2019-12-16] MEDS: lamoTRIgine 25 MG TAB PO SCH (17:08)
[2019-12-16] MEDS: OLANZapine 10 MG TAB PO SCH (21:12)
[2019-12-17] MEDS: lamoTRIgine 25 MG TAB PO SCH (09:01)
--- NOTE | 2019-12-17 15:19 | Psychiatric Progress Note ---
Date of Service December 17, 2019 Impression / Recommendations Impression The patient is a 29-year-old male who lives alone in [place], recently dropped out of graduate school, and has a reported history of bipolar disorder type I, admitted involuntarily after he presented to the ER with a friend due to manic and psychotic symptoms, as he was downtown, handing out thousands of dollars to strangers, had not been sleeping, went off his mood stabilizing medication, and was grossly disorganized and responding to hallucinations in the ER. Collateral from parents and treating psychiatrist obtained re: past hospitalization/med trials. Symptoms are improving on Zyprexa and now restart of Lamictal, he remains at risk to himself given review of chart/reports: as he is unable to provide for his own basic needs (as evidenced by his of outpatient treatment for bipolar disorder despite severe symptoms and history of hospitalization for mood disorder), and places others at risk due to his erratic behavior, hypersexuality, and lack of appropriate boundaries as evidenced by repeatedly touching and harassing female staff in the hospital, harassing female peers, and inability to control his behavior even here on the inpatient unit with frequent redirection and reality orientation. Inpatient treatment remains medically necessary and is the least restrictive treatment option, as patient lack insight as to the severity of his condition and is unwilling to participate in appr opriate conversations regarding treatment expectations and discharge planning. (1) Bipolar 1 disorder: 12/10 -olanzapine 5 mg every 6 hours as needed. FLP and FG ordered for tomorrow. -Medically necessary private room due to severity of psychotic and manic symptoms. Patient is excused from groups due to severity of psychotic symptoms/erratic behavior. -Expand database with information from mother, previous treatment records if we can identify them, and any local support/friends. On a 302 involuntary commitment, continue to gather information toward the need for ongoing involuntary commitment. 12/11 -schedule olanzapine 5 mg every morning and 10 mg at bedtime, and continue 5 mg as needed dose. -Patient was not fasting this morning, so fasting labs rescheduled for tomorrow. -Continue private room due to severity of psychotic and manic symptoms. -Excused from groups as unable to participate appropriately, and postpone family meeting until under better symptomatic control. 12/12 -patient is somnolent this morning, so held a.m. dose of olanzapine. FLP and fasting glucose checked today for monitoring on an atypical antipsychotic, all values are within normal limits. -Continue private room and excuse patient from groups due to hypersexual and inappropriate behavior. -File for 303 involuntary commitment hearing to be held tomorrow. -Assist patient to apply for medical assistance, and refer for outpatient case management services. 12/13 -303 involuntary commitment granted. -Continue olanzapine 10 mg at bedtime and 5 mg as needed dose. -Continue private room, patient may attend groups as tolerated/if able to remain in behavioral control. Patient was advised of his responsibilities as far as appropriate behavior, not touching or harassing others on the unit, and expressed understanding. -Recommend family meeting with parents who are in [place], and referral for outpatient treatment as he states he plans to remain in the area until his lease expires. He does not have insurance, so will refer to the [facility] for assistance with outpatient treatment. 12/14 - Continue treatment plan as above - pt refusing to titrate olanzapine, but is agreeable with continuing the medication after discharge - If patient demonstrates willingness to continue medications, consider if there is an alternative agent that may be better tolerated - valproic acid would be one option - Attempt to schedule support meeting with patient's friend, continuing to gather collateral information as available in the interim 12/15 - Pt reporting preference at this time continue olanzapine - unable to recognize severity of his illness, and therefore unwilling to discuss other medication options - Pt was informed that titration of the medication may be recommended during his hospitalization, but that other agents could be discussed should he desire a more comprehensive review - Pt continues to demonstrate very limited insight (or possibly denial) into the severity of his mental health condition. He continues to deflect difficult questions and is more focused on perceived injustice of involuntary commitment than addressing his mental health needs in preparation for discharge - As ongoing conversation occurs, there seem to be significant underlying personality traits - specifically narcissistic personality disorder, which may be clouding the patient's ability to accept his diagnosis and recognize the serious impact of his behavior. - Dr. Tabares - psychiatrist who previously treated patient during his time in [place] - is available to provide collateral information between 1100 and 1400 tomorrow (1000 and 1300 Central time). Will attempt to reach out to him tomorrow. 12/16 -Dr. Tabares, the patient's former psychiatrist in [place], was contacted today by [facility] PA-C. A written report of the conversation is pending. Noted was the fact that Dr. Tabares indicated that the patient had been hospitalized in 2018 because of depression and suicidal ideation, and again in 2019 for "psychosis." -The patient's condition appears to be improving. He has been less intrusive, and his behavior on the unit has been more appropriate. He continues to so symptoms of shanice including pressured speech, expansive mood, and poor judgment. He also remains suspicious of the motives of various staff members and is continuing to threaten to "otilio" [facility] for improperly committing him. -Despite the above threat, the patient has been generally cooperative. He indicates that he feels that he should go back on lamotrigine because he feels that it "evens [him] out" and he feels the hospital should have known to put him back on it when he was admitted. Material risks and anticipated benefits of lamotrigine were reviewed with the patient. Material risks discussed included, but were not not limited to, Flores-Cody syndrome. The patient indicated that he had not developed a rash at any time in the past while taking lamotrigine. He also says that he feels that he may have received some benefit from Zyprexa because it is helping him sleep. -Patient reports that he is not experiencing any suicidal thoughts. He is also future oriented, and tells me that he hopes to apply to other universities, including [employer], in order to once again pursue his graduate studies since things did not work out for him at [employer]. ("Just not the right fit.") He also reports that he is not having any thoughts of harming other people. Risk Factors Assessment Male: Yes : Yes Health Problems: No Mental Health Diagnoses: Yes Previous Psychiatric Hospitalization: Yes Protective Factors Assessment Yazidi Beliefs: Yes : No Responsible for Young Children: No Employed: No Stable Relationships: No (Patient reports he has not spoken to his brother in months and is distressed about that, and has few friends/supports here.) Supportive Family: Yes Good Rapport with Provider: No (No outpatient care) Interval History Identifying Information NICOLA PULLIAM is a 29-year-old M who currently lives in [place], has a history of bipolar disorder, and was admitted on 12/10/19 05:58 on a 302 involuntary commitment for shanice and psychosis. He is on a 303 involuntary commitment as of 12/13/2019. Chief Complaint "no one can give me a straight answer, I'm writing down what you said for court". Review of Systems Sleep Information Total Hours of Sleep: 7 Sleep Comments: pt spent most of the shift in the day room. he refused PRN medications. Meal Information Percent Meal Consumed - Breakfast: 100 Percent Meal Consumed - Lunch: 100 Percent Meal Consumed - Dinner: 100 Nutrition Comment: pt. sleeping Subjective Subjective Patient was seen & assessed and interval progress reviewed with nursing and social work. Continues to lack insight into need for hospitalization, says "I can do what I want with my money.". Remains on MNPR as had been intrussive/poor boundaries on admission, rather grandiose and labile since. He plans appeal to his 303. Became irritated in discussing differences in length of commitment, estimate LOS and aspects of discharge planning. Believes he is being kept here as we are not doing our jobs and he is misunderstood due to high level of productivity and intelligence. He attempted to recite a Kipling poem but became disorganized. He decompensated to personal attacks about professionalism of providers involved in his stay and refused to engage in discussion around discharge planning/ongoing commtiment criteria, instead writing down a comment of mine out of context as paranoid we are inventing reasons to keep him here. Physical Exam Psychiatric Orientation: alert, oriented x 3 and + guarded (only superficially cooperative initially, then becomes very defensive ) Apperance: appropriately dressed, appropriately groomed and appeared stated age Eye Contact: good eye contact Motor Behavior: steady gait and station Speech: + loud speech Affect: + labile affect Mood: + angry mood; no anxious mood Thought Process: + tangential thought process and + perseveration (remains very focused on discharge, feels he is being held unlawfully) Thought Content: + preoccupation (with discharge and presenting his case for 303 appeal ) and + paranoid Suicidal Thoughts: denies suicidal thoughts Homicidal Thoughts: denies homicidal thoughts Hallucinations: no auditory hallucinations and no visual hallucinations Cognition: recent memory grossly intact, remote memory grossly intact and language grossly intact; + attention not intact Estimated Intelligence: + above average estimated intelligence Insight: + poor insight Judgement: + poor judgement Vital Signs (Past 24 Hours) Last Vital Signs Temp 36.4 C L 12/17/19 06:50 Pulse 71 12/17/19 06:51 Resp 18 12/17/19 06:50 BP 116/82 12/17/19 06:51 Pulse Ox 98 12/10/19 01:48 Results & Data ([facility]) Current Inpatient Medications Current Inpatient Medications: Current Inpatient Medications Acetaminophen (Tylenol) 650 mg PO Q4H PRN PRN Reason: Headache or Minor Fever Stop: 01/09/20 06:35 Al Hydrox/Mg Hydrox/Simethicone (Maalox) 30 ml PO Q4H PRN PRN Reason: GI Upset Stop: 01/09/20 06:35 Bismuth Subsalicylate (Kaopectate) 15 ml PO PRN PRN PRN Reason: Loose Stool Stop: 01/09/20 06:35 Hydroxyzine HCl (Vistaril) 50 mg PO HSZ PRN PRN Reason: Insomnia Stop: 01/09/20 06:35 Hydroxyzine HCl (Vistaril) 25 mg PO Q4H PRN PRN Reason: Anxiety Stop: 01/09/20 06:35 Lamotrigine (Lamictal) 25 mg PO QAM JUSTIN Stop: 01/15/20 16:29 Last Admin: 12/17/19 09:01 Dose: 25 mg Documented by: Magnesium Hydroxide (Milk Of Magnesia) 30 ml PO DAILY PRN PRN Reason: Constipation Stop: 01/09/20 06:35 Nicotine Polacrilex (Nicorette 2mg) 1 piece MT PRN PRN PRN Reason: nicotine cravings Stop: 01/12/20 14:47 Last Admin: 12/15/19 08:06 Dose: 1 piece Documented by: Olanzapine (Zyprexa) 5 mg PO Q6H PRN PRN Reason: psychosis Stop: 01/09/20 09:44 Olanzapine (Zyprexa) 10 mg PO HS JUSTIN Stop: 01/11/20 21:59 Last Admin: 12/16/19 21:12 Dose: 10 mg Documented by: Sodium Chloride (Daisy Nasal) 1 - 2 sprays NA PRN PRN PRN Reason: Nasal Dryness/Congestion Stop: 01/09/20 06:35 Mental Health & Subst Abuse Tx Therapist Name of Therapist: unknown Dobby Looms Pegger Name of Dobby Looms Pegger: [facility] (Administrative CM) Phone Number for Dobby Looms Pegger: [phone] Date of Appointment with Dobby Looms Pegger: 12/21/19 Time of Appointment with Dobby Looms Pegger: 2:00 p.m. Case Management Appointment Comment: [address] [facility] [place] [address] Post Discharge Appointments Primary Care Physician Name Of Family Doctor: unknown Contact Information Discharge Discharge Address: [address] [place] [address], [place] [address]
[2019-12-17] MEDS: NICOTINE POLACRILEX 2 MG GUM MT PRN (19:14)
[2019-12-17] MEDS: OLANZapine 10 MG TAB PO SCH (22:59)
[2019-12-18] MEDS: lamoTRIgine 25 MG TAB PO SCH (08:49)
--- NOTE | 2019-12-18 15:01 | Psychiatric Progress Note ---
Date of Service December 18, 2019 Impression / Recommendations Impression The patient is a 29-year-old male who lives alone in [place], recently dropped out of graduate school, and has a reported history of bipolar disorder type I, admitted involuntarily after he presented to the ER with a friend due to manic and psychotic symptoms, as he was downtown, handing out thousands of dollars to strangers, had not been sleeping, went off his mood stabilizing medication, and was grossly disorganized and responding to hallucinations in the ER. Collateral from parents and treating psychiatrist obtained re: past hospitalization/med trials. Symptoms are improving on Zyprexa, now refusing Lamictal restart as desires monotherapy and in this context Zyprexa most acute benefit. It is unclear how much of residual symptoms are related to underlying personality pathology vs paranoia due to shanice. Regardless, he will not meet criteria for involuntary inpatient hospitalization much longer and will likely need to be discharged before condition fully stabilized. (1) Bipolar 1 disorder: 12/10 -olanzapine 5 mg every 6 hours as needed. FLP and FG ordered for tomorrow. -Medically necessary private room due to severity of psychotic and manic sympt oms. Patient is excused from groups due to severity of psychotic symptoms/erratic behavior. -Expand database with information from mother, previous treatment records if we can identify them, and any local support/friends. On a 302 involuntary commitment, continue to gather information toward the need for ongoing involuntary commitment. 12/11 -schedule olanzapine 5 mg every morning and 10 mg at bedtime, and continue 5 mg as needed dose. -Patient was not fasting this morning, so fasting labs rescheduled for tomorrow. -Continue private room due to severity of psychotic and manic symptoms. -Excused from groups as unable to participate appropriately, and postpone family meeting until under better symptomatic control. 12/12 -patient is somnolent this morning, so held a.m. dose of olanzapine. FLP and fasting glucose checked today for monitoring on an atypical antipsychotic, all values are within normal limits. -Continue private room and excuse patient from groups due to hypersexual and inappropriate behavior. -File for 303 involuntary commitment hearing to be held tomorrow. -Assist patient to apply for medical assistance, and refer for outpatient case management services. 12/13 -303 involuntary commitment granted. -Continue olanzapine 10 mg at bedtime and 5 mg as needed dose. -Continue private room, patient may attend groups as tolerated/if able to remain in behavioral control. Patient was advised of his responsibilities as far as appropriate behavior, not touching or harassing others on the unit, and expressed understanding. -Recommend family meeting with parents who are in [place], and referral for outpatient treatment as he states he plans to remain in the area until his lease expires. He does not have insurance, so will refer to the base service unit for assistance with outpatient treatment. 12/14 - Continue treatment plan as above - pt refusing to titrate olanzapine, but is agreeable with continuing the medication after discharge - If patient demonstrates willingness to continue medications, consider if there is an alternative agent that may be better tolerated - valproic acid would be one option - Attempt to schedule support meeting with patient's friend, continuing to gather collateral information as available in the interim 12/15 - Pt reporting preference at this time continue olanzapine - unable to recognize severity of his illness, and therefore unwilling to discuss other medication options - Pt was informed that titration of the medication may be recommended during his hospitalization, but that other agents could be discussed should he desire a more comprehensive review - Pt continues to demonstrate very limited insight (or possibly denial) into the severity of his mental health condition. He continues to deflect difficult questions and is more focused on perceived injustice of involuntary commitment than addressing his mental health needs in preparation for discharge - As ongoing conversation occurs, there seem to be significant underlying personality traits - specifically narcissistic personality disorder, which may be clouding the patient's ability to accept his diagnosis and recognize the serious impact of his behavior. - Dr. Tabares - psychiatrist who previously treated patient during his time in [place] - is available to provide collateral information between 1100 and 1400 tomorrow (1000 and 1300 Central time). Will attempt to reach out to him tomorrow. 12/16 -Dr. Tabares, the patient's former psychiatrist in [place], was contacted today by [facility] PA-C. A written report of the conversation is pending. Noted was the fact that Dr. Tabares indicated that the patient had been hospitalized in 2018 because of depression and suicidal ideation, and again in 2019 for "psychosis." -The patient's condition appears to be improving. He has been less intrusive, and his behavior on the unit has been more appropriate. He continues to so symptoms of shanice including pressured speech, expansive mood, and poor judgment. He also remains suspicious of the motives of various staff members and is continuing to threaten to "otilio" [facility] for improperly committing him. -Despite the above threat, the patient has been generally cooperative. He indicates that he feels that he should go back on lamotrigine because he feels that it "evens [him] out" and he feels the hospital should have known to put him back on it when he was admitted. Material risks and anticipated benefits of lamotrigine were reviewed with the patient. Material risks discussed included, but were not not limited to, Flores-Cody syndrome. The patient indicated that he had not developed a rash at any time in the past while taking lamotrigine. He also says that he feels that he may have received some benefit from Zyprexa because it is helping him sleep. -Patient reports that he is not experiencing any suicidal thoughts. He is also future oriented, and tells me that he hopes to apply to other universities, including [employer], in order to once again pursue his graduate studies since things did not work out for him at [employer]. ("Just not the right fit.") He also reports that he is not having any thoughts of harming other people. 12/17--now refusing lamictal, unwilling to discuss titration of Zyprexa. Ultimately after MD meeting he terminated and staff discussion he is accepting of his diagnosis and agreeing to continue current dose of Zyprexa. Risk Factors Assessment Male: Yes : Yes Health Problems: No Mental Health Diagnoses: Yes Previous Psychiatric Hospitalization: Yes Protective Factors Assessment [facility] Beliefs: Yes : No Responsible for Young Children: No Employed: No Stable Relationships: No (Patient reports he has not spoken to his brother in months and is distressed about that, and has few friends/supports here.) Supportive Family: Yes Good Rapport with Provider: No (No outpatient care) Interval History Identifying Information SUDHIR PULLIAM is a 29-year-old M who currently lives in [place], has a history of bipolar disorder, and was admitted on 12/10/19 05:58 on a 302 involuntary commitment for shanice and psychosis. He is on a 303 involuntary commitment as of 12/13/2019. Chief Complaint "I just want to take 1 medication, if you can't answer that question right now I want that recorded". Review of Systems Sleep Information Total Hours of Sleep: 5.25 Sleep Comments: Sudhir stayed up to watch TV till 0030. Meal Information Percent Meal Consumed - Breakfast: 100 Percent Meal Consumed - Lunch: 100 Percent Meal Consumed - Dinner: 100 Nutrition Comment: pt. sleeping Subjective Subjective Patient was seen & assessed and interval progress reviewed with nursing and social work. Essentially unchanged per staff--he is cooperative with visitors, has been attending to self-care. No sexually inappropriate behaviors. No responding to internal stimuli but easily derails in conversation with MD around discussion of his diagnosis and outpatient treatment planning. Staff confirmed with friend involved in his ED visit that he is much improved from admission and closer to baseline as has been visiting regularly. Today made it clear I wanted to discuss a potential discharge date but am concerned he is not invested in continuing medication or outpatient care as he maintains he is here under false pretenses and the hospital should not be interfering with his finances. Reviewed other symptoms from ED including responding to physician/internist stimuli, flirting with inappropriate laughter, friend's concerns, previous psychiatrist collateral information. He then shifted to criteria for bipolar disorder and wanted to argue DSM criteria as previous episode <8 hours by his report. Reviewed that in my medical opinion he's currently had manic symptoms for >1 week given behaviors prior to commitment and ongoing stay. He then accepted bipolar I diagnosis but shut down discussion around meds as "anything I say can be used against me" and demanded our session be recorded as a court proceeding. Reviewed that this is not appropriate as not a hearing and my interactions are clinical and in the interest of treatment and discharge planning at which time he escalated to reporting I'm added to his malpractice law suit and a horrible person. He accused me of having [employer] student Hermelindo Pelletier RN present for interview as "you must be afraid of me then" but was not threatening. Soon after the interaction he presented a handwritten note to staff stating that he only wants care with Dr. Galeana which is not possible and that he would refuse Zyprexa. Staff clarified my med recs and reviewed with patient as more receptive to staff than MD interventions as projects blame around ongoing containment to MD obviously, particularly resistant when female provider and professional nursing assistant has been involved thus far in stay. Physical Exam Vital Signs (Past 24 Hours) Last Vital Signs Temp 36.4 C L 12/18/19 07:01 Pulse 64 12/18/19 07:01 Resp 16 12/18/19 07:01 BP 118/70 12/18/19 07:01 Pulse Ox 98 12/10/19 01:48 Results & Data ([facility]) Current Inpatient Medications Current Inpatient Medications: Current Inpatient Medications Acetaminophen (Tylenol) 650 mg PO Q4H PRN PRN Reason: Headache or Minor Fever Stop: 01/09/20 06:35 Al Hydrox/Mg Hydrox/Simethicone (Maalox) 30 ml PO Q4H PRN PRN Reason: GI Upset Stop: 01/09/20 06:35 Bismuth Subsalicylate (Kaopectate) 15 ml PO PRN PRN PRN Reason: Loose Stool Stop: 01/09/20 06:35 Hydroxyzine HCl (Vistaril) 50 mg PO HSZ PRN PRN Reason: Insomnia Stop: 01/09/20 06:35 Hydroxyzine HCl (Vistaril) 25 mg PO Q4H PRN PRN Reason: Anxiety Stop: 01/09/20 06:35 Magnesium Hydroxide (Milk Of Magnesia) 30 ml PO DAILY PRN PRN Reason: Constipation Stop: 01/09/20 06:35 Nicotine Polacrilex (Nicorette 2mg) 1 piece MT PRN PRN PRN Reason: nicotine cravings Stop: 01/12/20 14:47 Last Admin: 12/17/19 19:14 Dose: 1 piece Documented by: Olanzapine (Zyprexa) 5 mg PO Q6H PRN PRN Reason: psychosis Stop: 01/09/20 09:44 Olanzapine (Zyprexa) 10 mg PO HS JUSTIN Stop: 01/11/20 21:59 Last Admin: 12/17/19 22:59 Dose: 10 mg Documented by: Sodium Chloride ([place] Nasal) 1 - 2 sprays NA PRN PRN PRN Reason: Nasal Dryness/Congestion Stop: 01/09/20 06:35 Mental Health & Subst Abuse Tx Therapist Name of Therapist: unknown Mosaic Worker Name of Mosaic Worker: [facility] Phone Number for Mosaic Worker: [phone] Date of Appointment with Mosaic Worker: 12/21/19 Time of Appointment with Mosaic Worker: 2:00 p.m. Case Management Appointment Comment: [address], [place] [address] Post Discharge Appointments Primary Care Physician Name Of Family Doctor: unknown Contact Information Discharge Discharge Address: [address] [place] [address]
[2019-12-18] MEDS: OLANZapine 10 MG TAB PO SCH (21:09)
--- NOTE | 2019-12-19 09:25 | Discharge Summary ---
Date of Service December 19, 2019 History of Present Illness per admitting clinician, see also H&P: Patient presented to the ER in the securities consultant hours with a friend, who had contacted crisis due to patient's erratic and bizarre behavior. Reportedly he was walking around downtown, handing out thousands of dollars to people and area businesses. He had recently been kicked out of graduate school in [place]. In the ER, he appeared manic, with pressured speech, flight of ideas, inappropriate laughter, and inability to stay on topic or answer questions appropriately. He appeared to be responding to internal stimuli, and he said he came into the ER for "bad gas." His friends reported he has known the patient for 5 months, did not know of any drug use, and had never seen him behave this way before. He said that he received a masters degree in [place], and came to [employer] to get a PhD, but was kicked out for "being racist against women." He said he was from [place], and was handing out money because he had it, and felt it was right to give it to others. He said he hates women because "they all suck," but told the ER psych lead case manager he liked her because she had nice eyebrows. He was laughing loudly throughout the assessment. He was unable to provide answers to most questions, answering with unrelated or contradictory information. At one point he reported using meth and heroin, but later denied using drugs. He said he had been diagnosed with bipolar disorder, depression, and schizophrenia in the past, then said he had been diagnosed with Alzheimer's, dementia, and Parkinson's, but then said he was lying. He said he would is prescribed Lamictal at some point in the past, but took himself off of it, but cannot recall when this happened. He was able to provide a phone number for his mother. He was admitted on a 302 involuntary commitment. On arrival to the unit, he is floridly psychotic and labile, became hysterical at one point, yelling and asking where his father was. He was tearful and distraught, but staff were able to de-escalate him. He was walking around the unit, talking to unseen others, taking down art off the bocanegra, and attempting to leave through the unit locked doors. He was unable to explain how he came to be in the hospital, and kept asking me if I was "Lewis." He was very resistant to staff suggestions he tried to get some sleep, and received 1 mg of risperidone, and later 10 mg of olanzapine. He eventually did lie down and is currently sleeping. His mother was contacted and stated that he was diagnosed with bipolar disorder, and had been on lamotrigine in the past. He was hospitalized in [place], and is close with his siblings who live in [place]. He lost his insurance through [employer] when he dropped out of the PhD program in August or September. Admission labs notable for BUN of 19, anion gap of 2.0, UA with 2+ ketones, UDS negative. Physical Exam Mental Examination per admitting clinician, see also H&P. For discharge exam see day of discharge assessment. Vital Signs (Past 24 Hours) Last Vital Signs Temp 36.4 C L 12/19/19 06:00 Pulse 65 12/19/19 06:45 Resp 16 12/19/19 06:00 BP 116/80 12/19/19 06:45 Pulse Ox 98 12/10/19 01:48 Principal Diagnosis bipolar I disorder, most recent episode manic Psychiatric Data see daily care summary. Sudhir was initially grandiose with poor physical boundaries with female staff. He minimized the severity of symptoms leading up to admission and also his giving away inappropriate amount of money calling it philanthropy. He was quite angry/distrustful of psychiatric providers in particular as believed he was being held without cause but did agree to psychiatric medication and showed significant improvement in thought organization and self control on Zyprexa. He ultimately declined to resume Lamictal as desired monotherapy. During the last 24-48 hours of his stay his main difficulties were related to inability to calmly discuss discharge planning and demonstrate meaningful commitment to his diagnosis and medication, even de manding that clinical care be recorded. His local friend was involved in his care confirmed their interactions were baseline. Admitting physician participated in his treatment team this am and concurs with my assessment that residual symptoms are likely personality driven and he no longer meets criteria for involuntary commitment. Day of Discharge Assessment Sudhir was active about unit, joking in conversation but redirecting himself. His thoughts were more organized and he has consistently agreed to take Zyprexa and attend aftercare upon discharge. He is aware my medical opinion is that he remains hypomanic and at risk for impulsive decision making, particularly to worsen if stops his medication. He does not want further inpatient care on a voluntary basis. There is no current evidence of psychosis interfering with his medical decision making. He again confirms he is not having thoughts to hurt himself or others and no aggression or threats have been displayed other than threatening to otilio doctors for malpractice for further confinement with verbal disrespect to doctors as the authority figure. He is pleasant asked appropriate questions about his rights to records which were answered to his satisfaction at the time of discharge. He is aware that monitoring of Zyprexa is recommend as can have metabolic and other muscle side effects longer term (TD). Transition of Care Transition Of Care Record: was reviewed with the patient Advance Directives Advance Directives Information Provided: Yes Advance Directives: No Mental Health Advance Directive: No Advance Directives on File: No Living Will: No Power of [employer] Senior Sergeant: No Advance Directives Reason:: Declines as Mental Health Visit. Risk Factors Assessment Male: Yes : Yes Health Problems: No Mental Health Diagnoses: Yes Previous Psychiatric Hospitalization: Yes Protective Factors Assessment Adventism Beliefs: Yes : No Responsible for Young Children: No Employed: No Stable Relationships: No (Patient reports he has not spoken to his brother in months and is distressed about that, and has few friends/supports here.) Supportive Family: Yes Good Rapport with Provider: No (No outpatient care) Tobacco Cessation at Discharge Tobacco Cessation Medication Prescribed at Discharge: Offered & Pt Refused Total Time Total Time Spent: Greater Than 30 Minutes Total Time Includes: Examination of the patient, Discharge Planning and Me dication Reconciliation Discharge Data Lab Results 12/10/19 12/10/19 12/10/19 00:08 00:08 01:18 WBC 9.53 RBC 4.81 Hgb 15.4 Hct 43.0 MCV 89.4 MCH 32.0 MCHC 35.8 RDW Std Deviation 39.4 RDW Coeff of Magaly 12.3 Plt Count 186 MPV 10.5 H Immature Gran % (Auto) 0.1 Neut % (Auto) 60.6 Lymph % (Auto) 30.8 [place] % (Auto) 8.1 Eos % (Auto) 0.3 Baso % (Auto) 0.1 Immature Gran # (Auto) 0.01 Neut # (Auto) 5.77 Lymph # (Auto) 2.94 [place] # (Auto) 0.77 H Eos # (Auto) 0.03 Baso # (Auto) 0.01 Sodium Potassium Chloride Carbon Dioxide Anion Gap BUN Creatinine Est Cr Clr Drug Dosing Est GFR ( Amer) Est GFR (Non-Af Amer) BUN/Creatinine Ratio Glucose Fasting Glucose Calcium Total Bilirubin AST ALT Alkaline Phosphatase Total Protein Albumin Globulin Albumin/Globulin Ratio Triglycerides Cholesterol LDL Cholesterol, Calc VLDL Cholesterol, Calc HDL Cholesterol Cholesterol/HDL Ratio TSH Urine Color Dark Yellow Urine Appearance Clear Urine pH 5.0 Ur Specific [place] 1.037 H Urine Protein Negative Urine Glucose (UA) Negative Urine Ketones 2+ H Urine Blood Negative Urine Nitrite Negative Urine Bilirubin Negative Urine Urobilinogen Negative Ur Leukocyte Esterase Negative Salicylates Urine Opiates Screen Neg Ur Methadone, Qual Neg Acetaminophen Urine Barbiturates Neg Ur Phencyclidine (PCP) Neg U Amphetamin/Meth Scrn Neg MDMA (Ecstasy) Screen Neg U Benzodiazepines Scrn Neg Ur Cocaine Metabolite Neg U Marijuana (THC) Screen Neg Ethyl Alcohol mg/dL 12/10/19 12/10/19 12/10/19 01:18 01:18 01:18 WBC RBC Hgb Hct MCV MCH MCHC RDW Std Deviation RDW Coeff of Magaly Plt Count MPV Immature Gran % (Auto) Neut % (Auto) Lymph % (Auto) [place] % (Auto) Eos % (Auto) Baso % (Auto) Immature Gran # (Auto) Neut # (Auto) Lymph # (Auto) [place] # (Auto) Eos # (Auto) Baso # (Auto) Sodium 138 Potassium 3.6 Chloride 107 Carbon Dioxide 29 Anion Gap 2.0 L BUN 19 H Creatinine 1.18 Est Cr Clr Drug Dosing 98.4 Est GFR ( Amer) 96.1 Est GFR (Non-Af Amer) 82.9 BUN/Creatinine Ratio 16.5 Glucose 95 Fasting Glucose Calcium 8.8 Total Bilirubin 0.8 AST 33 ALT 21 Alkaline Phosphatase 52 Total Protein 7.5 Albumin 4.2 Globulin 3.3 Albumin/Globulin Ratio 1.3 Triglycerides Cholesterol LDL Cholesterol, Calc VLDL Cholesterol, Calc HDL Cholesterol Cholesterol/HDL Ratio TSH 1.400 Urine Color Urine Appearance Urine pH Ur Specific [place] Urine Protein Urine Glucose (UA) Urine Ketones Urine Blood Urine Nitrite Urine Bilirubin Urine Urobilinogen Ur Leukocyte Esterase Salicylates < 1.7 L Urine Opiates Screen Ur Methadone, Qual Acetaminophen < 2 L Urine Barbiturates Ur Phencyclidine (PCP) U Amphetamin/Meth Scrn MDMA (Ecstasy) Screen U Benzodiazepines Scrn Ur Cocaine Metabolite U Marijuana (THC) Screen Ethyl Alcohol mg/dL < 3.0 12/12/19 07:35 WBC RBC Hgb Hct MCV MCH MCHC RDW Std Deviation RDW Coeff of Magaly Plt Count MPV Immature Gran % (Auto) Neut % (Auto) Lymph % (Auto) [place] % (Auto) Eos % (Auto) Baso % (Auto) Immature Gran # (Auto) Neut # (Auto) Lymph # (Auto) [place] # (Auto) Eos # (Auto) Baso # (Auto) Sodium Potassium Chloride Carbon Dioxide Anion Gap BUN Creatinine Est Cr Clr Drug Dosing Est GFR ( Amer) Est GFR (Non-Af Amer) BUN/Creatinine Ratio Glucose Fasting Glucose 94 Calcium Total Bilirubin AST ALT Alkaline Phosphatase Total Protein Albumin Globulin Albumin/Globulin Ratio Triglycerides 70 Cholesterol 157 LDL Cholesterol, Calc 86 VLDL Cholesterol, Calc 14 HDL Cholesterol 57 Cholesterol/HDL Ratio 3 TSH Urine Color Urine Appearance Urine pH Ur Specific [place] Urine Protein Urine Glucose (UA) Urine Ketones Urine Blood Urine Nitrite Urine Bilirubin Urine Urobilinogen Ur Leukocyte Esterase Salicylates Urine Opiates Screen Ur Methadone, Qual Acetaminophen Urine Barbiturates Ur Phencyclidine (PCP) U Amphetamin/Meth Scrn MDMA (Ecstasy) Screen U Benzodiazepines Scrn Ur Cocaine Metabolite U Marijuana (THC) Screen Ethyl Alcohol mg/dL Hospital Course (1) Bipolar 1 disorder: 12/10 -olanzapine 5 mg every 6 hours as needed. FLP and FG ordered for tomorrow. -Medically necessary private room due to severity of psychotic and manic symptoms. Patient is excused from groups due to severity of psychotic symptoms/erratic behavior. -Expand database with information from mother, previous treatment records if we can identify them, and any local support/friends. On a 302 involuntary commitment, continue to gather information toward the need for ongoing involuntary commitment. 12/11 -schedule olanzapine 5 mg every morning and 10 mg at bedtime, and continue 5 mg as needed dose. -Patient was not fasting this morning, so fasting labs rescheduled for tomorrow. -Continue private room due to severity of psychotic and manic symptoms. -Excused from groups as unable to participate appropriately, and postpone family meeting until under better symptomatic control. 12/12 -patient is somnolent this morning, so held a.m. dose of olanzapine. FLP and fasting glucose checked today for monitoring on an atypical antipsychotic, all values are within normal limits. -Continue private room and excuse patient from groups due to hypersexual and inappropriate behavior. -File for 303 involuntary commitment hearing to be held tomorrow. -Assist patient to apply for medical assistance, and refer for outpatient case management services. 12/13 -303 involuntary commitment granted. -Continue olanzapine 10 mg at bedtime and 5 mg as needed dose. -Continue private room, patient may attend groups as tolerated/if able to remain in behavioral control. Patient was advised of his responsibilities as far as appropriate behavior, not touching or harassing others on the unit, and expressed understanding. -Recommend family meeting with parents who are in [place], and referral for outpatient treatment as he states he plans to remain in the area until his lease expires. He does not have insurance, so will refer to the base service unit for assistance with outpatient treatment. 12/14 - Continue treatment plan as above - pt refusing to titrate olanzapine, but is agreeable with continuing the medication after discharge - If patient demonstrates willingness to continue medications, consider if there is an alternative agent that may be better tolerated - valproic acid would be one option - Attempt to schedule support meeting with patient's friend, continuing to gather collateral information as available in the interim 12/15 - Pt reporting preference at this time continue olanzapine - unable to recognize severity of his illness, and therefore unwilling to discuss other medication options - Pt was informed that titration of the medication may be recommended during his hospitalization, but that other agents could be discussed should he desire a more comprehensive review - Pt continues to demonstrate very limited insight (or possibly denial) into the severity of his mental health condition. He continues to deflect difficult questions and is more focused on perceived injustice of involuntary commitment than addressing his mental health needs in preparation for discharge - As ongoing conversation occurs, there seem to be significant underlying personality traits - specifically narcissistic personality disorder, which may be clouding the patient's ability to accept his diagnosis and recognize the serious impact of his behavior. - Dr. Tabares - psychiatrist who previously treated patient during his time in [place] - is available to provide collateral information between 1100 and 1400 tomorrow (1000 and 1300 Central time). Will attempt to reach out to him tomorrow. 12/16 -Dr. Tabares, the patient's former psychiatrist in [place], was contacted today by [facility] PA-C. A written report of the conversation is pending. No arun was the fact that Dr. Tabares indicated that the patient had been hospitalized in 2018 because of depression and suicidal ideation, and again in 2019 for "psychosis." -The patient's condition appears to be improving. He has been less intrusive, and his behavior on the unit has been more appropriate. He continues to so symptoms of shanice including pressured speech, expansive mood, and poor judgment. He also remains suspicious of the motives of various staff members and is continuing to threaten to "otilio" [facility] for improperly committing him. -Despite the above threat, the patient has been generally cooperative. He indicates that he feels that he should go back on lamotrigine because he feels that it "evens [him] out" and he feels the hospital should have known to put him back on it when he was admitted. Material risks and anticipated benefits of lamotrigine were reviewed with the patient. Material risks discussed included, but were not not limited to, Flores-Cody syndrome. The patient indicated that he had not developed a rash at any time in the past while taking lamotrigine. He also says that he feels that he may have received some benefit from Zyprexa because it is helping him sleep. -Patient reports that he is not experiencing any suicidal thoughts. He is also future oriented, and tells me that he hopes to apply to other universities, incl ing [employer], in order to once again pursue his graduate studies since things did not work out for him at [employer]. ("Just not the right fit.") He also reports that he is not having any thoughts of harming other people. 12/17--now refusing lamictal, unwilling to discuss titration of Zyprexa. Ultimately after MD meeting he terminated and staff discussion he is accepting of his diagnosis and agreeing to continue current dose of Zyprexa. Mental Health & Subst Abuse Tx Therapist Name of Therapist: unknown Beauty Parlor Cleaner Name of Beauty Parlor Cleaner: [facility] (Administrative ) Phone Number for Beauty Parlor Cleaner: [phone] Date of Appointment with Beauty Parlor Cleaner: 12/21/19 Time of Appointment with Beauty Parlor Cleaner: 2:00 p.m. Case Management Appointment Comment: [address] [place] [address] Post Discharge Appointments Primary Care Physician Name Of Family Doctor: unknown Smoking Cessation Counseling Tobacco Cessation Medication Prescribed at Discharge: Offered & Pt Refused Contact Information Discharge Discharge Address: [address] [place] [id number] Discharge Plan Discharge Items Patient Disposition: Home - Self-Care Reason For Visit: PSYCHOSIS NOS Discharge Diagnosis: bipolar disorder Activity: Resume your previous activity Non-emergency contact: Primary Care Provider, Therapist and Edger Runner Call non-emergency contact if: you have any medication questions and your symptoms worsen Follow-up/Referrals: PCP,NO [Primary Care Provider] - Diet: Regular Addtl Attending Provider Instructions: SPECIAL CARE INSTRUCTIONS: 1. Follow through with your scheduled aftercare appointments. If unable to keep an appointment, please call to reschedule. 2. Take your medication only as prescribed. Medication should not be changed or stopped without the approval of your doctor. In the event of worsening symptoms or concerns about side effects, contact your doctor immediately. 3. Utilize new healthy coping skills, anger management skills, and stress management skills learned during your hospitalization. Journal feelings and process them with a support person. Identify stressors or situations that may result in relapse, deterioration or inappropriate behaviors and develop a plan to deal with those issues. 4. If your coping skills are ineffective and you are in crisis, contact your outpatient providers for direction. If unable to reach your providers, please call the CAN HELP LINE AT or go to the closest Emergency Room. 5. Avoid alcohol and un-prescribed drugs. 6. You have been provided with the Mental Health Advance Directives Pamphlet for your review. AFTERCARE APPOINTMENTS: * Please call your insurance company prior to your scheduled appointment to confirm your aftercare providers are covered. Take your insurance information to your appointments. WHO TO CALL AND WHEN: Medical Emergencies: For questions or emergencies related to your hospital stay, please contact the Inpatient Behavioral Health Unit at [phone]. A cloth painter is on-call 11/05 for the Behavioral Health Unit for emergencies At any time you feel your situation is an emergency, you may also call 911 immediately. Your Doctors Instructions noted above were prepared by provider Christie Rey MD. Pending Studies at Discharge: No Stand-Alone Forms: My [facility] Sentiment, Smoking Cessation, Suicide Prevention Resources Medications and DC Order Prescriptions: New olanzapine 10 mg Tablet 10 mg PO HS Qty: 30 RF: 0 Discharge Orders: Discharge Order (Routine); Ordered 12/19/19 Ordered By: Christie Rey Admission Data Admit Date/Time: 12/10/19 05:58 Attending Provider: Christie Rey Admit Provider: Claudia Dior Primary Care Provider: PCP,NO Other Interventions: Discharge Summary Assessment (RN) Last Done: 12/19/19 10:10 PSY Interdisciplinary Discharge Planning Last Done: 12/19/19 10:09 DC Date/Time DO NOT enter until pt leaves facility: 12/19/19 10:36 Coding Level of Care Code 06691 D/C day mgmt > 30 min Diagnoses Bipolar 1 disorder F31.9
== END 2019-12-19 10:36 | disposition home or self-care (01) | DRG 885 ==
LOC: ED 23:51 → SUATTDRO 12-10 05:58 → 3S 12-10 05:58